=== PATIENT | male | born 1960 ===

== ENCOUNTER 2016-08-23 06:14 | Day surgery (SDC) | payer MEDICARE, MEDICAID ==
[2016-08-22 12:05] VITALS: BMI 41.9
[2016-08-23] MEDS ORDERED: Lidocaine 2% Inj (20ml) ONE (06:29)
[2016-08-23] MEDS ORDERED: Iodixanol 320 MG/ML 200 ML BOTTLE IV ONE (06:30)
[2016-08-23] MEDS ORDERED: Iodixanol 320 MG/ML 100 ML BOTTLE IV ONE (06:30)
[2016-08-23] MEDS ORDERED: Phenylephrine 10 mg/ml Inj ONE (06:30)
[2016-08-23] MEDS ORDERED: Iohexol 350mgl/ml 50 ML ONE (06:30)
[2016-08-23] MEDS ORDERED: Nitroglycerin 50mg in D5W 0 MG/0 ML BOTTLE IV ONE (06:30)
[2016-08-23] MEDS ORDERED: Atropine 0.4 mg/ml Inj (1 mL) ONE (06:30)
[2016-08-23 06:47] LABS: ADD MANUAL DIFF? NO
[2016-08-23 07:00] LABS: BLOOD UREA NITROGEN 6 mg/dL (7-21); CARBON DIOXIDE 26 mmol/L (21-33); CHLORIDE 108 mmol/L (95-110); GFR AFRICAN-AMERICAN > 60; GLUCOSE,RANDOM 115 mg/dL (70-110); POTASSIUM 4.2 mmol/L (3.6-5.0); SODIUM 140 mmol/L (132-148)
[2016-08-23 07:03] LABS: INR 1.18 (0.93-1.08); PARTIAL THROMBOPLASTIN TIME 27.8 Seconds (23.7-30.8)
[2016-08-23] MEDS ORDERED: Midazolam 2 MG/2 ML VIAL ONE ×2 (07:10→07:41)
[2016-08-23 07:14] LABS: BASO # 0.04 K/mm3 (0.0-2.0); BASO % 0.6 % (0.0-3.0); EOS # 0.2 (0.0-0.7); EOS % 2.6 % (1.5-5.0); GRAN # 2.88 (1.4-6.5); GRAN % 46.4 % (50.0-68.0); LYMPH # 2.1 (1.2-3.4); LYMPH % 34.3 % (22.0-35.0); MEAN CELL VOLUME 90.7 fL (80.0-105.0); MEAN CORPUSCULAR HEMOGLOBIN 31.7 pg (25.0-35.0); MEAN PLATELET VOLUME 12.4 fl (7.0-11.0); MONO % 16.1 % (1.0-6.0); PLATELET COUNT 108 10^3/uL (120.0-450.0); RED CELL DISTRIBUTION WIDTH 13.9 % (11.5-14.5); WHITE BLOOD COUNT 6.2 10^3/ul (4.5-11.0)
[2016-08-23] MEDS ORDERED: Morphine 2 mg/ml ISec ONE ×2 (07:53→08:01)
[2016-08-23] MEDS ORDERED: Adenosine 90 mg/30mL IV ONE (07:53)
[2016-08-23 08:44] VITALS: TEMP 97.6
[2016-08-23] MEDS ORDERED: Sodium Chloride 0.9% 1,000 ML IV SCH (08:45)
--- NOTE | 2016-08-23 09:25 | CARDCATH ---
PROCEDURE DATE: 08/23/2016 HISTORY: The patient is a 56-year-old male who presents with progressive exertional shortness of gigi ath and chest pain. Stress test revealed deterioration of his LV function. Because of this, cardiac catheterization was recommended. PROCEDURE: Left heart catheterization with coronary angiography and left ventriculogram as well as F FR was performed. There were no complications. The right femoral artery was cannulated with a 6-[place] sheath. The findings on catheterization revealed a right dominant circulation. The RCA revealed diffuse atherosclerosis throughout its tree. There was a stent in the mid portion. After the stent, there is a 60% stenoses at the takeoff of the posterolateral branch. The left main artery was found to be unremarkable. The LAD revealed multiple stents that were patent throughout its course from the proximal to the mid portion. In the mid portion of the LAD, there was a 40-50% stenosis noted. There is a 90% stenosis in the small diagonal vessels. The circumflex artery was a large vessel and found to have diffuse atherosclerosis. At the ostium of the circumflex artery, there was a 50-60% stenosis noted. FFR was performed of the ostial circumflex lesion, which was negative for critical physiologic gradie nts. The FFR was 0.96. Left ventriculogram was performed in the JOHNSON projection. In the JOHNSON projection, wall motion was glob ally mildly dilated but with preserved left ventricular systolic function. Estimated ejection fracti on is between 50-55%. The patient tolerated the procedure well. Angio-Seal was used to close the femoral artery site. In summary, the procedure revealed multivessel CAD with stents throughout his coronary tree. There w as a 50-60% stenosis in the ostial circumflex artery with an FFR 0.96. There were patent stents in t he LAD, as well as a 60% stenosis in the distal RCA at the takeoff of the posterolateral branch. LV function was preserved with a mildly dilated LV with good systolic function. Given these findings, no mechanical procedures are necessary in his coronary tree. Instead, we will continue medical therapy. Again, I have discussed with the patient about the need for weight loss as well as improvement of cardiac risk reduction program, which he has been very reluctant to participa te in. Rashad Russo MD cc: [phone] TT: 08/23/2016 09:24:31 jn
[2016-08-23 15:28] LABS: HEMATOCRIT 38.9 % (42.0-52.0); MEAN CELL VOLUME 92.2 fL (80.0-105.0); MEAN CORPUSCULAR HEMOGLOBIN 31.8 pg (25.0-35.0); MEAN CORPUSCULAR HGB CONC 34.4 g/dl (31.0-37.0); MEAN PLATELET VOLUME 11.9 fl (7.0-11.0); WHITE BLOOD COUNT 4.9 10^3/ul (4.5-11.0)
[2016-08-23 15:47] VITALS: BP 124/73; PULSE 81; RESP 20; O2SAT 98
--- NOTE | 2016-08-23 15:58 | CP.PCM.PN ---
<Ricardo Best - Last Filed: 08/23/16 17:22> Subjective - Date & Time of Evaluation Date of Evaluation: 08/23/16 Time of Evaluation: 14:55 - Subjective Subjective: S: At approximately 2:56pm a rapid response was called on a 56M with pmh of CAD s/ p stents x 10, HTN, hypothyroidism, HLD, DM, who was s/p cath procedure at 8am this morning. Pt. was walking in the afternoon before his discharge and became dizzy, weak, and complained of chest pain 6/10 which radiated to his arm. O: Pt. vitals 128/78, pulse 70, respirations 18 100% O2 A:56M complaining of chest pain on exertion s/p cath in the morning P: repeat BP 143/[address] on monitor continue IV fluids 100cc/hr repeat EKG showed no interval change from previous. NSR 81bpm with non specific ST-T changes Pt's pain dropped to 4/10 after approximately 20min and then to 0/10 after 30min attending notified Dr. Russo. Objective - Vital Signs/Intake and Output Vital Signs (last 24 hours): Temp Pulse Resp BP Pulse Ox 97.6 F 81 20 124/73 98 08/23/16 11:50 08/23/16 15:40 08/23/16 15:40 08/23/16 15:40 08/23/16 15:40 - Labs Labs: 08/23/16 15:22 08/23/16 06:40 PT 12.7 Seconds (9.9-11.8) H 08/23/16 06:40 INR 1.18 (0.93-1.08) H 08/23/16 06:40 APTT 27.8 Seconds (23.7-30.8) 08/23/16 06:40 <Ines Metz - Last Filed: 08/23/16 18:51> Objective - Vital Signs/Intake and Output Vital Signs (last 24 hours): Temp Pulse Resp BP Pulse Ox 97.6 F 81 20 124/73 98 08/23/16 11:50 08/23/16 15:40 08/23/16 15:40 08/23/16 15:40 08/23/16 15:40 - Labs Labs: 08/23/16 15:22 08/23/16 06:40 PT 12.7 Seconds (9.9-11.8) H 08/23/16 06:40 INR 1.18 (0.93-1.08) H 08/23/16 06:40 APTT 27.8 Seconds (23.7-30.8) 08/23/16 06:40 Attending/Attestation - Attestation I have personally seen and examined this patient.: Yes I have fully participated in the care of the patient.: Yes I have reviewed all pertinent clinical information, including history, physical exam and plan: Yes Notes (Text): 08/23/16 18:05 HOSPITAL CHIEF EXECUTIVE OFFICER was called when pt c/o feeling dizzy,weak and c/o mid-sternal chest pain radiating to the R arm.This happened when pt was walking with his nurse before he was to be discharged.He was promptly placed on a chair,then on a stretcher.He was not diaphoretic ,denied nausea,SOB, calf pain,abdominal pain or any other symptoms. On P.E at that time,pt was alert,awake and in no clinical distress. As noted,his VS were stable.O2 sat was 100% on 3L O2 by NC. KELLEE JVD neg LUNGS clear COR S1S2 Regular ABD Obese,BS+,dressing in place in the R groin.Minimal tenderness noted at this site. No hematoma or swelling noted. No tenderness noted in the R lower abdomen(near the site of the Cath). EXT No calf tenderness. SKIN is warm and dry. IMP: Chest pain Dizziness Weakness PLAN Continue iv fluids Place pt on cardiac moniter EKG ordered stat Orthostatic VS CBC stat NTG 0.4 mg SL was given stat Dr Russo was called.He wanted pt to get fluids for about an hr,then he should be made to sit on a recliner for a while before he can ambulate. To notify him after CBC result is available. EKG done stat showed no change from prior EKG in the chart.
--- NOTE | 2016-08-23 18:47 | CARD ---
APPROVED REPORT EKG Measurement Heart [id number] <Conclusion> Normal sinus rhythm Nonspecific T wave abnormality Prolonged QT Abnormal ECG
--- NOTE | 2016-08-23 19:03 | CARD ---
APPROVED REPORT EKG Measurement Heart [id number] <Conclusion> Normal sinus rhythm Possible Anterior infarct, age undetermined Abnormal ECG
== END 2016-08-23 16:35 | disposition home or self-care (01) ==
LOC: CATH 06:14
PROVIDERS: ATTEND Internal Medicine Cardiovascular Disease
DX: I25.10 Atherosclerotic heart disease of native coronary artery without angina pectoris (principal); R07.9 Chest pain, unspecified
CPT/HCPCS: 36415; 80048; 82948; 85025; 85027; 85610; 85730; 86850; 86900; 93005; 93458; 93571; 99152; 99153; C1760; C1769 ×2; C1887; C2629; J0153; J0583; J1644; J2250; J2270; J2370; J3010; J7040; Q9967 ×2

== ENCOUNTER 2017-05-09 02:16 | Observation (INO) | payer MEDICARE, MEDICAID ==
--- NOTE | 2017-05-09 02:28 | ED PDOC ---
Arrival/HPI - General Time Seen by Provider: 05/09/17 02:18 Historian: Patient - History of Present Illness Narrative History of Present Illness (Text): 05/09/17 02:25 A 57 year old male, whose past medical history includes CAD with 10 cardiac stents, hypertension, hypothyroidism, hyperlipidemia, Diabetes, presents to the emergency department complaining of bilateral nipple pain and left leg swelling. The patient denies fevers, chills, headache, dizziness, chest pain, shortness of breath, dyspnea on exertion, cough, abdominal pain, nausea, vomiting, diarrhea, back pain, neck pain, urinary/bowel changes, or any other complaint. PMD: Dr. Santos Time/Duration: Other (Today) Symptom Onset: Sudden Symptom Course: Unchanged Activities at Onset: Rest, Light Context: Home Past Medical History - Provider Review Nursing Documentation Reviewed: Yes - Infectious Disease Hx of Infectious Diseases: None - Tetanus Immunization Tetanus Immunization: Unknown - Cardiac Hx Pacemaker: No - Pulmonary Hx Respiratory Disorders: No - Neurological Hx Paralysis: No - HEENT Hx HEENT Disorder: No - Renal Hx Renal Disorder: No - Endocrine/Metabolic Hx Endocrine Disorders: Yes Hx Diabetes Mellitus Type 1: Yes - Hematological/Oncological Hx Blood Transfusions: No Hx Blood Transfusion Reaction: No - Integumentary Hx Dermatological Disorder: No Other/Comment: ble multiple skin discolorations - Musculoskeletal/Rheumatological Hx Musculoskeletal Disorders: Yes (HX LEFT LOWER LEG INJURY FX OF TIB-FIB LEFT.) - Gastrointestinal Hx Gastrointestinal Disorders: Yes (obese) - Genitourinary/Gynecological Hx Genitourinary Disorders: No - Psychiatric Hx Emotional Abuse: No Hx Physical Abuse: No Hx Substance Use: No - Surgical History Hx Cardiac Catheterization: Yes - Anesthesia Hx Anesthesia Reactions: No Hx Malignant Hyperthermia: No - Suicidal Assessment Feels Threatened In Home Enviroment: No Family/Social History - Physician Review Nursing Documentation Reviewed: Yes Family/Social History: No Known Family HX Smoking Status: Never Smoked Hx Alcohol Use: No Hx Substance Use: No Hx Substance Use Treatment: No Allergies/Home Meds Allergies/Adverse Reactions: Allergies No Known Allergies Allergy (Verified 05/09/17 12:32) Home Medications: Home Meds Medication Instructions Recorded Confirmed Insulin Glargine,Hum.rec.anlog 90 unit AR ACS 10/17/12 05/09/17 [Lantus] Metformin HCl 1,000 mg PO BID 02/24/14 05/09/17 Glipizide 10 mg PO BID 05/16/14 05/09/17 Levothyroxine Sodium 50 mcg PO DAILY 05/16/14 05/09/17 [id number] Ethyl Esters [OMEGA 3] 4 tab PO BID 05/16/14 05/09/17 Esomeprazole Magnesium [Nexium] 40 mg PO DAILY 05/17/14 05/09/17 Aspirin [Ecotrin] 81 mg PO DAILY 07/31/15 05/09/17 Atenolol [Tenormin] 50 mg PO DAILY 07/31/15 05/09/17 Clopidogrel [Plavix] 75 mg PO DAILY 07/31/15 05/09/17 Colesevelam HCl [Welchol] 625 mg PO DAILY 07/31/15 05/09/17 Insulin Lispro [Humalog] 50 units SQ ACTID 08/04/15 05/09/17 Review of Systems - Physician Review All systems were reviewed & negative as marked: Yes - Review of Systems Constitutional: absent: Fevers, Night Sweats Respiratory: absent: SOB, Cough Cardiovascular: absent: Chest Pain, [place] Gastrointestinal: absent: Abdominal Pain, Diarrhea, Nausea, Vomiting Musculoskeletal: Other (Bilateral nipple pain/ left leg swelling). absent: Back Pain, Neck Pain Neurological: absent: Headache, Dizziness Physical Exam Vital Signs Reviewed: Yes Vital Signs Temp Pulse Pulse Resp BP Pulse Ox 05/09/17 04:17 98.3 F 100 H 16 135/77 96 05/09/17 02:17 105 H 106 H 15 153/84 H 97 Temperature: Afebrile Blood Pressure: Hypertensive Pulse: Tachycardic Respiratory Rate: Normal Appearance: Positive for: Well-Appearing, Non-Toxic, Comfortable, Other ( Morbidly Obese) Pain Distress: None Mental Status: Positive for: Alert and Oriented X 3 - Systems Exam Head: Present: Atraumatic, Normocephalic Pupils: Present: PERRL Extroacular Muscles: Present: EOMI Conjunctiva: Present: Normal Mouth: Present: Moist Mucous Membranes Neck: Present: Normal Range of Motion Respiratory/Chest: Present: Clear to Auscultation, Good Air Exchange. No: Respiratory Distress, Accessory Muscle Use Cardiovascular: Present: Regular Rate and Rhythm, Normal S1, S2. No: Murmurs Abdomen: Present: Normal Bowel Sounds. No: Tenderness, Distention, Peritoneal Signs Back: Present: Normal Inspection Upper Extremity: Present: Normal Inspection. No: Cyanosis, Edema Lower Extremity: Present: Swelling (Left leg swelling). No: Edema Neurological: Present: GCS=15, CN II-XII Intact, Speech Normal Skin: Present: Warm, Dry, Normal Color. No: Rashes Psychiatric: Present: Alert, Oriented x 3, Normal Insight, Normal Concentration Medical Decision Making ED Course and Treatment: 05/09/17 02:28 Impression: A 57 year old male, presents to the emergency department complaining of bilateral nipple pain and left leg swelling. Plan: -- EKG -- Chest X-ray -- Left Lower Extremity Ultrasound -- Labs -- Urinalysis -- Reassess and disposition Progress Notes: 05/09/17 04:01: Chest X-ray read and interpreted by me shows no acute findings. spoke with medical equipment technician and dr parsons for admission for cp 05/10/17 10:07 - Lab Interpretations Lab Results: 05/09/17 02:20 05/09/17 02:20 Lab Results 05/09/17 02:30: Free T4 0.91, TSH 3rd Generation 1.88 05/09/17 02:30: Hemoglobin A1c 8.9 H 05/09/17 02:30: NT-Pro-B Natriuret Pep 139, Triglycerides 153, Cholesterol 221 H , LDL Cholesterol Direct 136 H, HDL Cholesterol 46 05/09/17 02:20: Sodium 139, Potassium 3.9, Chloride 104, Carbon Dioxide 23, Anion Gap 15, BUN 9, Creatinine 0.7 L, Est GFR ( Amer) > 60, Est GFR (Non -Af Amer) > 60, Random Glucose 430 H* D, Calcium 9.2, Magnesium 1.9, Total Bilirubin 1.3, AST 72 H, ALT 56, Alkaline Phosphatase 114, Lactate Dehydrogenase 749 H, Total Creatine Kinase 152, Troponin I 0.02, Total Protein 7.1, Albumin 3.2, Globulin 3.9, Albumin/Globulin Ratio 0.8 L 05/09/17 02:20: PT 14.9 H, INR 1.30 H, APTT 30.5 05/09/17 02:20: WBC 6.0 D, RBC 4.05, Hgb 13.2 L, Hct 37.5 L, MCV 92.6, MCH 32.6 , MCHC 35.2, RDW 13.6, Plt Count 108 L, MPV 10.9, Gran % 51.8, Lymph % (Auto) 31.5, Hawkins % (Auto) 12.8 H, Eos % (Auto) 3.2, Baso % (Auto) 0.7, Gran # 3.09, Lymph # (Auto) 1.9, Hawkins # (Auto) 0.8 H, Eos # (Auto) 0.2, Baso # (Auto) 0.04 I have reviewed the lab results: Yes - RAD Interpretation Radiology Orders: 05/09/17 02:33 DUPLEX LOWER EXTRM VEIN BILAT [US] Stat - EKG Interpretation Interpreted by ED Physician: Yes Type: 12 lead EKG - Medication Orders Current Medication Orders: Aspirin (Ecotrin) 81 mg PO DAILY [facility] Last Admin: 05/09/17 13:06 Dose: Not Given Non-Admin Reason: Patient Refused Atenolol (Tenormin) 50 mg PO DAILY [facility] Last Admin: 05/09/17 14:45 Dose: 50 mg BANNER Pulse and Blood Pressure Document 05/09/17 14:45 (Rec: 05/09/17 14:45 [id number]) Pulse Pulse Rate (60-90) 107 Blood Pressure Blood Pressure (100/60-150/90) 128/76 Atorvastatin Calcium (Lipitor) 40 mg PO DIN [facility] Last Admin: 05/09/17 17:10 Dose: 40 mg Clopidogrel Bisulfate (Plavix) 75 mg PO DAILY [facility] Last Admin: 05/09/17 13:08 Dose: Furosemide (Lasix) 40 mg IVP DAILY [facility] Last Admin: 05/09/17 14:44 Dose: 40 mg MAR Blood Pressure Document 05/09/17 14:44 (Rec: 05/09/17 14:45 [email or web address]) Blood Pressure Blood Pressure (100/60-150/90) 128/76 IVP Administration Document 05/09/17 14:44 (Rec: 05/09/17 14:45 [id number] Charges for Administration # of IVP Administrations 1 Heparin Sodium (Porcine) (Heparin) 5,000 units SC Q12 [facility] PRN Reason: Protocol Last Admin: 05/09/17 22:08 Dose: Insulin Human Lispro (Humalog Low) 0 units SC ACHS SARAH PRN Reason: Protocol Last Admin: 05/10/17 07:57 Dose: Not Given Non-Admin Reason: Blood Sugar Parameter MAR Blood Glucose Document 05/10/17 07:57 VM (Rec: 05/10/17 07:57 [id number]) Blood Glucose Finger Stick Blood Glucose (70-120) 140 Levothyroxine Sodium (Synthroid) 50 mcg PO ACB [facility] Last Admin: 05/10/17 06:33 Dose: 50 mcg Colesevelam Hcl [ Welchol] 625 Mg ( Home Med) 625 mg PO DAILY [facility] Last Admin: 05/09/17 13:06 Dose: [id number]-8-[id number] Ethyl Esters (Lovaza) 2 gm PO BID [facility] Last Admin: 05/09/17 17:10 Dose: 2 gm Pantoprazole Sodium (Protonix Ec Tab) 40 mg PO 0600 [facility] Last Admin: 05/10/17 06:33 Dose: 40 mg Discontinued Medications Atenolol (Tenormin) 50 mg PO DAILY [facility] Sodium Chloride (Sodium Chloride 0.9%) 1,000 mls @ 100 mls/hr IV .Q10H SARAH Stop: 05/09/17 17:00 Last Admin: 05/09/17 11:46 Dose: 100 mls/hr eMAR Start Stop Document 05/09/17 11:46 JACOBO (Rec: 05/09/17 11:46 DestinyZA [id number]) Intravenous Solution Start Date 05/09/17 Start Time 11:46 Insulin Human Regular (Humulin R) 8 units SC STAT STA Stop: 05/09/17 03:39 Last Admin: 05/09/17 03:55 Dose: 8 units MAR Blood Glucose Document 05/09/17 03:55 JOL (Rec: 05/09/17 03:55 JOL [id number]) Blood Glucose Finger Stick Blood Glucose (70-120) 430 Subcutaneous Administrations Document 05/09/17 03:55 JOL (Rec: 05/09/17 03:55 JOL [id number]) Injection Site MAR Injection Site Left Arm Charges for Administration # of Subcutaneous Administrations 1 Insulin Human Regular (Humulin R High) 0 units SC ACHS SARAH PRN Reason: Protocol Last Admin: 05/09/17 13:07 Dose: Not Given Non-Admin Reason: Blood Sugar Parameter Comments: orange juice administered MAR Blood Glucose Document 05/09/17 13:07 JACOBO (Rec: 05/09/17 13:07 JACOBO [id number]) Blood Glucose Finger Stick Blood Glucose (70-120) 69 Nitroglycerin (Nitro-Bid 2% Oint) 1 ea TOP ONCE STA Stop: 05/09/17 03:28 Last Admin: 05/09/17 03:55 Dose: 1 ea Nitroglycerin (Nitrostat Sl Tab) 0.4 mg SL Q5M PRN PRN Reason: Other Stop: 05/09/17 06:41 Pneumococcal Polyvalent Vaccine (Pneumovax 23 Vaccine) 0.5 ml IM .ONCE ONE Stop: 05/09/17 15:05 - Scribe Statement The provider has reviewed the documentation as recorded by the Mikeibe Lupis Lang Provider Scribe Attestation: All medical record entries made by the Scribe were at my direction and personally dictated by me. I have reviewed the chart and agree that the record accurately reflects my personal performance of the history, physical exam, medical decision making, and the department course for this patient. I have also personally directed, reviewed, and agree with the discharge instructions and disposition. Disposition/Present on Arrival - Present on Arrival Any Indicators Present on Arrival: No History of DVT/PE: No History of Uncontrolled Diabetes: Yes Urinary Catheter: No History Surgical Site Infection Following: None - Disposition Have Diagnosis and Disposition been Completed?: Yes Diagnosis: Chest pain Disposition: HOSPITALIZED Disposition Time: 04:35 Patient Problems: Current Active Problems Problem Status Onset Diabetes mellitus Chronic Hyperlipidemia Chronic Hypertension Chronic Condition: GOOD
[2017-05-09 02:52] LABS: BASO # 0.04 K/mm3 (0.0-2.0); BASO % 0.7 % (0.0-3.0); EOS # 0.2 (0.0-0.7); EOS % 3.2 % (1.5-5.0); GRAN # 3.09 (1.4-6.5); GRAN % 51.8 % (50.0-68.0); HEMOGLOBIN 13.2 g/dL (14.0-18.0); LYMPH # 1.9 (1.2-3.4); LYMPH % 31.5 % (22.0-35.0); MEAN CELL VOLUME 92.6 fl (80.0-105.0); MEAN CORPUSCULAR HEMOGLOBIN 32.6 pg (25.0-35.0); MEAN CORPUSCULAR HGB CONC 35.2 g/dl (31.0-37.0); MEAN PLATELET VOLUME 10.9 fl (7.0-11.0); MONO # 0.8 (0.1-0.6); MONO % 12.8 % (1.0-6.0); RBC 4.05 10^6/uL (3.5-6.1); RED CELL DISTRIBUTION WIDTH 13.6 % (11.5-14.5)
[2017-05-09 03:02] LABS: INR 1.3 (0.93-1.08); PARTIAL THROMBOPLASTIN TIME 30.5 Seconds (25.1-36.5); PROTHROMBIN TIME 14.9 SECONDS (9.4-12.5)
[2017-05-09] MEDS ORDERED: Nitroglycerin 2% Ointment Foilpak UD TOP STA (03:27)
[2017-05-09 03:32] LABS: TROPONIN I 0.02 ng/mL
[2017-05-09 03:38] LABS: ALB/GLOB RATIO 0.8 (1.1-1.8); ALBUMIN 3.2 g/dL (3.0-4.8); ALT/SGPT 56 U/L (7-56); AST/SGOT 72 U/L (17-59); BLOOD UREA NITROGEN 9 mg/dL (7-21); CALCIUM 9.2 mg/dL (8.4-10.5); GFR AFRICAN-AMERICAN > 60; GFR NON-AFRICAN AMERICAN > 60; MAGNESIUM 1.9 mg/dL (1.7-2.2)
[2017-05-09] MEDS ORDERED: Insulin Regular 1 UNITS/0.01 ML ML SC STA (03:38)
--- NOTE | 2017-05-09 05:53 | CP.PCM.HP ---
<Toñito Duong - Last Filed: 05/09/17 05:57> History of Present Illness - History of Present Illness History of Present Illness: This patient is a 57 year old male with a PMHx of CAD w/ 10 stents, HTN, Hypothyroidism, HLD, DM II, and Right Lower Ext. Cellulitis who presents complaining of bilateral lower extremity edema with associated tenderness x 1 week and chest pain x 1 day. Patient denies any inciting factors that could have caused the edema. He has tried his home lasix to try to self treat the edema without success. He denies any prior history of CHF. He does admit to dyspnea on exertion but denies any orthopnea. Patient states the chest pain began yesterday around 11 pm. He describes it as "tight" and states the pain radiates to his back. He has not attempted any modalities to treat the pain but states it was relieved with the NitroPatch. He does admit to palpitations, and intermittent headaches/dizziness within the past week. Patient had one episode of NBNB vomiting yesterday. He currently denies any nausea. ROS POSITIVES: Chest pain, SOB (intermittent), dyspnea on exertion, vomiting, palpitations, Headache (intermittent), Dizziness (intermittent) NEGATIVES: Fevers, Chills, Orthopnea, Abdominal pain, nausea, changes i bowel habits, or urinary symptoms. PMHx: CAD w/ 10 stents, HTN, Hypothyroidism, HLD, DM II, Right Lower Ext. Cellulitis PSHx: Denies Allergies: NKDA SocialHx: Denies any tobacco, alcohol, or illicit drug use Hos: 2016 for Right Lower Ext. Cellulitis FamHx: CVA, DM (Father) | Breast CA (Mother) Meds: Reviewed. PMD: [employer] Worker: Dr. Russo Present on Admission - Present on Admission Any Indicators Present on Admission: Yes History of Uncontrolled Diabetes: Yes Review of Systems - Review of Systems Review of Systems: As per HPI Past Patient History - Infectious Disease Hx of Infectious Diseases: None - Tetanus Immunizations Tetanus Immunization: Unknown - Past Social History Smoking Status: Never Smoked - CARDIAC Hx Pacemaker: No - PULMONARY Hx Respiratory Disorders: No - NEUROLOGICAL Hx Paralysis: No - HEENT Hx HEENT Problems: No - RENAL Hx Chronic Kidney Disease: No - ENDOCRINE/METABOLIC Hx Endocrine Disorders: Yes Hx Diabetes Mellitus Type 1: Yes - HEMATOLOGICAL/ONCOLOGICAL Hx Blood Transfusions: No Hx Blood Transfusion Reaction: No - INTEGUMENTARY Hx Dermatological Problems: No Other/Comment: ble multiple skin discolorations - MUSCULOSKELETAL/RHEUMATOLOGICAL Hx Musculoskeletal Disorders: Yes (HX LEFT LOWER LEG INJURY FX OF TIB-FIB LEFT.) - GASTROINTESTINAL Hx Gastrointestinal Disorders: Yes (obese) - GENITOURINARY/GYNECOLOGICAL Hx Genitourinary Disorders: No - PSYCHIATRIC Hx Emotional Abuse: No Hx Physical Abuse: No Hx Substance Use: No - SURGICAL HISTORY Hx Cardiac Catheterization: Yes - ANESTHESIA Hx Anesthesia Reactions: No Hx Malignant Hyperthermia: No Meds Allergies/Adverse Reactions: Allergies Allergy/AdvReac Type Severity Reaction Status Date / Time No Known Allergies Allergy Verified 05/09/17 02:34 Physical Exam - Constitutional Appears: Well, Non-toxic, No Acute Distress - Head Exam Head Exam: ATRAUMATIC, NORMAL INSPECTION, NORMOCEPHALIC - Eye Exam Eye Exam: EOMI. absent: Scleral icterus - ENT Exam ENT Exam: Mucous Membranes Moist - Neck Exam Neck exam: Negative for: Lymphadenopathy - Respiratory Exam Respiratory Exam: Clear to Auscultation Bilateral, NORMAL BREATHING PATTERN. absent: Accessory Muscle Use, Rales, Rhonchi, Wheezes, Respiratory Distress, Stridor - Cardiovascular Exam Cardiovascular Exam: RRR, +S1, +S2 - GI/Abdominal Exam GI & Abdominal Exam: Distended (Body Habitus ), Normal Bowel Sounds, Soft. absent: Firm, Guarding, Mass, Organomegaly, Rebound, Tenderness - Extremities Exam Extremities exam: Positive for: calf tenderness, normal capillary refill, pedal edema, tenderness, pedal pulses present (Dorsalis Pedis +2 B/L. ). Negative for : normal inspection - Neurological Exam Neurological exam: Alert, Oriented x3 - Psychiatric Exam Psychiatric exam: Normal Affect, Normal Mood - Skin Skin Exam: Dry, Intact, Normal Color, Warm Results - Vital Signs Recent Vital Signs: Last Vital Signs Temp 98.3 F 05/09/17 04:17 Pulse 100 H 05/09/17 04:17 Resp 16 05/09/17 04:17 BP 135/77 05/09/17 04:17 Pulse Ox 96 05/09/17 04:17 - Labs Result Diagrams: 05/09/17 02:20 05/09/17 02:20 - EKG Data EKG Interpreted by: Myself Rate: Tachycardia - EKG Data EKG comments: No Acute ST or T wave changes Assessment & Plan - Assessment and Plan (Free Text) Assessment: 57 year old male with a PMHx of CAD w/ 10 stents, HTN, Hypothyroidism, HLD, DM II, and Right Lower Ext. Cellulitis who presents complaining of bilateral lower extremity edema with associated tenderness x 1 week and chest pain x 1 day. Plan: Chest Pain R/O ACS Trend Trops 1st Trop: NEGATIVE Trend EKst EKG: Sinus Tach. No Acute ST or T wavce changes BNP Mg/Phos Consult Cardio (Dr. Russo) ECHO (July 2016): Mild-Mod. LVH, Good LV systolic function, Dilated LA, AoV Sclerosis ECHO HgBA1C Lipid Panel TSH w/ Free T4 Lower Ext. Edema Ultrasound: NEGATIVE for DVT CXR: F/U BNP: F/U ECHO: F/U Daily weights. Home Lasix 40 Daily Hx of HTN Home Atenolol 50 Daily Home Lasix 40 Daily CAD w/ 10 Stents Home Plavix Home ASA HLD Home Welchol: Not in Formulary. Consider alternative if status is switched to inpatient [place] Hx DM II Held all home ant-diabetic meds ISS (High) Hx of Hypothyrodism Home Synthroid 50mcg PO ACB Proph Home Plavix Protonix. Pt is on Nexium at home Patient discussed with Attending (Dr. Núñez) Toñito Duong, PGY1 <Niya DRAKE,Antwan - Last Filed: 05/09/17 07:07> Results - Vital Signs Recent Vital Signs: Last Vital Signs Temp 98.3 F 05/09/17 04:17 Pulse 100 H 05/09/17 04:17 Resp 16 05/09/17 04:17 BP 135/77 05/09/17 04:17 Pulse Ox 96 05/09/17 04:17 - Labs Result Diagrams: 05/09/17 02:20 05/09/17 02:20 Attending/Attestation - Attestation I have personally seen and examined this patient.: Yes I have fully participated in the care of the patient.: Yes I have reviewed all pertinent clinical information: Yes Notes (Text): -I agree with the above H&P completed by the resident physician with the following additions and/or changes: -The patient is a 57 year old morbidly obese man with a history of CAD (s/p multiple stents), HL, IDDM and hypothyroidism, who is being admitted to the telemetry [facility] with chest pain (r/o ACS), poorly controlled diabetes (blood [id number]) and bilateral lower extremity pitting edema. He denies SOB, orthopnea, PND or cough. He reports compliance with a low salt diet as well as with Lasix and Insulin. His chest pain improved after receiving topical Nitro in the ED. Cardiology (Dr. Russo) has been consulted. Serial trops and EKGs as well as a 2D-echo have been ordered. High-dose Insulin sliding scale has been started. The patient will be placed on Lasix IV 40mg daily for diuresis. We will continue his home meds of ASA and Plavix. Bilateral Doppler lower extremity U/S done in the ED was negative (per preliminary report).
[2017-05-09] MEDS: Levothyroxine 50 MCG TAB PO SCH (07:30)
[2017-05-09 07:54] LABS: FREE T4 0.91 ng/dL (0.78-2.19)
[2017-05-09] MEDS ORDERED: Lidocaine 2% Inj (20ml) ONE ×2 (08:30→10:20)
[2017-05-09] MEDS: Insulin Reg-HIGH-Coverage SC SCH ×2 (08:30→13:07)
[2017-05-09] MEDS ORDERED: Iodixanol 320 MG/ML 200 ML BOTTLE IV ONE (08:31)
[2017-05-09] MEDS ORDERED: Iodixanol 320 MG/ML 100 ML BOTTLE IV ONE (08:31)
[2017-05-09] MEDS ORDERED: Iohexol 350mgl/ml 50 ML ONE (08:31)
[2017-05-09] MEDS ORDERED: HEPARIN SODIUM/NS 2,000 ML IV ONE (08:32)
[2017-05-09 08:43] LABS: HDL CHOLESTEROL 46 mg/dL (29-60)
[2017-05-09] MEDS: Dextrose 50% SYRINGE Inj (50 ml) ONE ×2 (08:50→13:06)
[2017-05-09 08:52] LABS: B-TYPE NATRIURETIC PEPTIDE 139 pg/mL (0-450)
[2017-05-09 08:53] LABS: LDL CHOLESTEROL 136 mg/dL (0-129)
--- NOTE | 2017-05-09 09:04 | RAD ---
HISTORY: COMPARISON: 04/13/2016 . TECHNIQUE: Chest PA and lateral FINDINGS: LINES AND TUBES: None. LUNG AND PLEURA: The lungs are well inflated and clear. HEART AND MEDIASTINUM: The heart is not enlarged. The hilar and mediastinal contours are within normal limits. SKELETAL STRUCTURES: The bony structures are within normal limits for the patient's age. VISUALIZED UPPER ABDOMEN: Normal. OTHER FINDINGS: None. IMPRESSION: No active pulmonary disease.
--- NOTE | 2017-05-09 09:20 | US ---
HISTORY: Leg pain and swelling. Evaluate for DVT PHYSICIAN(S): Rashad Olivo MD. TECHNIQUE: Duplex sonography and color-flow Doppler with graded compression were used to evaluate the deep venous systems of both lower extremities. The exam is limited by body habitus and edema. FINDINGS: The visualized deep venous systems of both lower extremities are sonographically normal and compressible. Normal wave forms and augmentation are seen. There is no sonographic evidence for deep venous thrombosis in the visualized segments of both lower extremities. IMPRESSION: No sonographic evidence for deep venous thrombosis in the visualized segments of both lower extremities. Limited study.
[2017-05-09] MEDS ORDERED: Enoxaparin 40 mg Syringe SC SCH (10:00)
[2017-05-09] MEDS: Midazolam 2 MG/2 ML VIAL ONE ×4 (10:13→15:23)
--- NOTE | 2017-05-09 10:17 | CARD ---
APPROVED REPORT EKG Measurement Heart [id number] [place] 190P46 [id number] <Conclusion> Normal sinus rhythm T wave abnormality, consider lateral ischemia Prolonged QT C/W earlier CG, the ST changes have increased
--- NOTE | 2017-05-09 10:26 | CARD ---
APPROVED REPORT EKG Measurement Heart [id number] [place] [id number] [id number] <Conclusion> Sinus tachycardia Minimal voltage criteria for LVH, may be normal variant PRWP Septal infarct, age undetermined Inferior infarct,old STTW changes c/w ischemia
[2017-05-09] MEDS ORDERED: Sodium Chloride 0.9% 1,000 ML IV SCH (11:15)
[2017-05-09] MEDS: COLESEVELAM HCL 625 MG PO SCH (13:06)
[2017-05-09] MEDS: Omega-3-Acid Ethyl Esters 1 GM Cap PO SCH ×2 (13:08→17:10)
[2017-05-09 15:04] VITALS: BMI 43.2
[2017-05-09] MEDS ORDERED: Influenza Vaccine 60 mcg/0.5 mL SYR (4YR UP) IM ONE (15:04)
[2017-05-09] MEDS ORDERED: Pneumococcal 23-Valent Vaccine IM ONE (15:04)
[2017-05-09] MEDS: Insulin Lispro (humaLOG) LOW Coverage SC SCH ×2 (17:09→22:07)
--- NOTE | 2017-05-09 22:05 | CARDCATH ---
PROCEDURE DATE: 05/09/2017 CARDIAC CATHETERIZATION AND PTCA HISTORY: The patient is a 57-year-old male with multiple cardiac risk factors with multiple stents in the past, who continues to avoid a cardiac risk reduction, cardiac risk reduction lifestyle. Despite multiple attempts at intervention, he presents with a non-STEMI and unstable angina. PROCEDURE: Left heart catheterization with coronary arteriography, left ventriculogram, PTCA and stent of the RCA, PTCA of a diagonal vessel through the LAD as well as well as PTCA of the of the diagonal through the LAD. The right femoral artery was cannulated with a 6-Frisian sheath. There were no complications. I performed moderate sedation, which included the presence of an independent trained observer that assisted in monitoring the patient's level of consciousness and physiologic status. After administration of Versed and fentanyl, my intra service time was 30 minutes. The findings on catheterization revealed a left ventricle that contracted normally. Estimated ejection fraction of 55-60%. His coronary anatomy revealed a right dominant circulation. The RCA was the dominant vessel and was a large vessel and which was diffusely diseased with diffuse atherosclerosis. In the midportion, there is an eccentric 70% stenoses noted. The left main artery was unremarkable. The circumflex artery revealed a 50-60% stenosis at its ostium, which was tested in the previous catheterization with an unremarkable FFR. The LAD revealed diffuse atherosclerosis with multiple patent stents throughout its course. The second diagonal revealed a 90% stenoses in its ostium extending into the proximal portion of the diagonal vessel. The patient was started on intravenous Angiomax on the fluoroscopic guide, the guiding catheter was placed in the ostium of the RCA. An 0.014 ATW wire was used to cross the lesion. A guide liner was used to help for better support. A 4.0 x 15 mm drug-eluting stent was placed and deployed at 16 atmospheres of pressure. Repeat coronary arteriography revealed an excellent result with no residual stenosis and GUILHERME III flow. This was then exchanged for a guiding catheter that was placed in the ostium of the left main artery. An 0.014 ATW wire was used to cross the LAD stent into the diagonal vessel. A 2.0 balloon was utilized to predilate the lesion. Attempts with multiple stents could not cross through the stent into the side branch. Despite multiple attempts, repeat coronary artery revealed GUILHERME III flow down the diagonal vessel. The patient tolerated the procedure well. Angio-Seal was used to close the femoral artery site. In summary, the procedure was successful PTCA and stent of mid RCA stenoses with a drug-eluting stent. PTCA of a diagonal vessels through an LAD stent was accomplished; however; stent could not cross the struts. Coronary arteriography revealed normal LV function with multivessel CAD. Given these findings, the patient will need to undergo a cardiac risk reduction program, which we have talked to him several times In addition, the patient will need to remain on aspirin indefinitely and Plavix for at least a year and undergo a strict cardiac risk reduction program. Rashad Russo MD
[2017-05-09 22:13] VITALS: O2SAT 96
[2017-05-10] MEDS ORDERED: Pantoprazole 40 mg EC Tab PO SCH (06:00)
--- NOTE | 2017-05-10 06:20 | CP.PCM.DIS ---
Addendum entered and electronically signed by Emile New DO 05/10/17 14 :54: Discussed with patient to not resume metformin until 48 hours have passed since his cath procedure due to effect on the kidneys. Original Note: <Emile New - Last Filed: 05/10/17 13:47> Provider - Provider Date of Admission: 05/09/17 04:00 Attending physician: Justice Webb MD Primary care physician: Obed Santos Consults: Cardiology: Dr. Lazo Time Spent in preparation of Discharge (in minutes): 45 Diagnosis - Discharge Diagnosis (1) Chest pain Status: Acute Priority: High (2) Diabetes mellitus Status: Chronic Priority: High (3) Hypertension Status: Chronic Priority: High (4) Hyperlipidemia Status: Chronic Priority: High Hospital Course - Lab Results Lab Results: Most Recent Lab Values WBC 6.0 10^3/ul (4.5-11.0) D 05/09/17 02:20 RBC 4.05 10^6/uL (3.5-6.1) 05/09/17 02:20 Hgb 13.2 g/dL (14.0-18.0) L 05/09/17 02:20 Hct 37.5 % (42.0-52.0) L 05/09/17 02:20 MCV 92.6 fl (80.0-105.0) 05/09/17 02:20 MCH 32.6 pg (25.0-35.0) 05/09/17 02:20 MCHC 35.2 g/dl (31.0-37.0) 05/09/17 02:20 RDW 13.6 % (11.5-14.5) 05/09/17 02:20 Plt Count 108 10^3/uL (120.0-450.0) L 05/09/17 02:20 MPV 10.9 fl (7.0-11.0) 05/09/17 02:20 Gran % 51.8 % (50.0-68.0) 05/09/17 02:20 Lymph % (Auto) 31.5 % (22.0-35.0) 05/09/17 02:20 Davie % (Auto) 12.8 % (1.0-6.0) H 05/09/17 02:20 Eos % (Auto) 3.2 % (1.5-5.0) 05/09/17 02:20 Baso % (Auto) 0.7 % (0.0-3.0) 05/09/17 02:20 Gran # 3.09 (1.4-6.5) 05/09/17 02:20 Lymph # (Auto) 1.9 (1.2-3.4) 05/09/17 02:20 Davie # (Auto) 0.8 (0.1-0.6) H 05/09/17 02:20 Eos # (Auto) 0.2 (0.0-0.7) 05/09/17 02:20 Baso # (Auto) 0.04 K/mm3 (0.0-2.0) 05/09/17 02:20 PT 14.9 SECONDS (9.4-12.5) H 05/09/17 02:20 INR 1.30 (0.93-1.08) H 05/09/17 02:20 APTT 30.5 Seconds (25.1-36.5) 05/09/17 02:20 Sodium 139 mmol/L (132-148) 05/09/17 02:20 Potassium 3.9 mmol/L (3.6-5.0) 05/09/17 02:20 Chloride 104 mmol/L (98-107) 05/09/17 02:20 Carbon Dioxide 23 mmol/L (21-33) 05/09/17 02:20 Anion Gap 15 (10-20) 05/09/17 02:20 BUN 9 mg/dL (7-21) 05/09/17 02:20 Creatinine 0.7 mg/dl (0.8-1.5) L 05/09/17 02:20 Est GFR ( Amer) > 60 05/09/17 02:20 Est GFR (Non-Af Amer) > 60 05/09/17 02:20 POC Glucose (mg/dL) 195 mg/dL (65-110) H 05/09/17 16:20 Random Glucose 430 mg/dL (70-110) H* D 05/09/17 02:20 Hemoglobin A1c 8.9 % (4.2-6.5) H 05/09/17 02:30 Calcium 9.2 mg/dL (8.4-10.5) 05/09/17 02:20 Magnesium 1.9 mg/dL (1.7-2.2) 05/09/17 02:20 Total Bilirubin 1.3 mg/dL (0.2-1.3) 05/09/17 02:20 AST 72 U/L (17-59) H 05/09/17 02:20 ALT 56 U/L (7-56) 05/09/17 02:20 Alkaline Phosphatase 114 U/L (38-126) 05/09/17 02:20 Lactate Dehydrogenase 749 U/L (333-699) H 05/09/17 02:20 Total Creatine Kinase 152 U/L (35-230) 05/09/17 02:20 Troponin I 0.02 ng/mL 05/09/17 02:20 NT-Pro-B Natriuret Pep 139 pg/mL (0-450) 05/09/17 02:30 Total Protein 7.1 g/dL (5.8-8.3) 05/09/17 02:20 Albumin 3.2 g/dL (3.0-4.8) 05/09/17 02:20 Globulin 3.9 gm/dL 05/09/17 02:20 Albumin/Globulin Ratio 0.8 (1.1-1.8) L 05/09/17 02:20 Triglycerides 153 mg/dL (35-160) 05/09/17 02:30 Cholesterol 221 mg/dL (130-200) H 05/09/17 02:30 LDL Cholesterol Direct 136 mg/dL (0-129) H 05/09/17 02:30 HDL Cholesterol 46 mg/dL (29-60) 05/09/17 02:30 Free T4 0.91 ng/dL (0.78-2.19) 05/09/17 02:30 TSH 3rd Generation 1.88 mIU/mL (0.46-4.68) 05/09/17 02:30 - Hospital Course Hospital Course: This patient is a 57 year old male with a PMHx of CAD w/ 10 stents, HTN, Hypothyroidism, HLD, DM II, and Right Lower Ext. edema who presented complaining of bilateral lower extremity edema with associated tenderness x 1 week and chest pain x 1 day. Patient denied any inciting factors that could have caused the edema. Patient attempted his home lasix to try to self treat the edema without success. Patient admit to dyspnea on exertion but denies any orthopnea. Patient stated the chest pain began yesterday around 11 pm and described it as "tight" and states the pain radiates to his back. While home patient did not attempt any modalities to treat the pain but states it was relieved with the NitroPatch. He does admit to palpitations, and intermittent headaches/dizziness within the past week. Patient had one episode of NBNB vomiting yesterday. He currently denies any nausea. Chest x-ray was ordered which revealed pulmonary vascular congestion however no cardiomegaly. EKG was significant for past infarcts and LVH. Cardiology was consulted and catheterization was performed which resulted in successful PTCA and stent of the mid RCA stenoses with a drug eluting stent. Coronary arteriography revealed normal LV function with multivessel coronary artery disease. As per cardiology recommendations considering patient's non compliance with medications and diet, patient will need to undergo a cardiac risk reduction program as well as remain on aspirin indefinitely and plavix for at least one year. Case discussed and reviewed with Dr. Tracey New PGY1 Discharge Exam - Head Exam Head Exam: ATRAUMATIC, NORMAL INSPECTION, NORMOCEPHALIC - Eye Exam Eye Exam: EOMI, Normal appearance - ENT Exam ENT Exam: Mucous Membranes Moist, Normal Exam - Neck Exam Neck exam: Normal Inspection - Respiratory Exam Respiratory Exam: Clear to PA & Lateral, NORMAL BREATHING PATTERN - Cardiovascular Exam Cardiovascular Exam: REGULAR RHYTHM, +S1, +S2 - GI/Abdominal Exam GI & Abdominal Exam: Normal Bowel Sounds, Unremarkable - Neurological Exam Neurological exam: Alert, Oriented x3 - Psychiatric Exam Psychiatric exam: Normal Affect, Normal Mood - Skin Skin Exam: Normal Color, Warm Additional comments: no hematoma noed at cath site Discharge Plan - Discharge Medications Prescriptions: Aspirin [Ecotrin] 81 mg PO DAILY 14 Days #14 tabec Clopidogrel [Plavix] 75 mg PO DAILY 14 Days #14 tab MetFORMIN [glucoPHAGE] 1,000 mg PO BID #14 tab - Follow Up Plan Condition: GOOD Disposition: HOME/ ROUTINE Instructions: Type 2 Diabetes, Cardiac Catheterization, Coronary Stenting, Heart Healthy Diet, Diabetes Diet , Coronary Heart Disease (DC) Additional Instructions: 1. Please follow up with your primary care doctor within 3-5 days regarding this admission. 2. As discussed, it is imperative to change your lifestyle with regards to your diet and you level of activity, please try to do so. 3. Please follow up with your psychological operations specialist Dr. Russo in 2 weeks for further prescriptions and follow up appointment. 4. Do not hesitate to return to the emergency department if symptoms worsen or persist. Referrals: Obed Santos MD [Primary Care Provider] - Rashad Russo MD [Staff Provider] - <Justice Webb - Last Filed: 05/10/17 14:57> Provider - Provider Date of Admission: 05/09/17 04:00 Attending physician: Justice Webb MD Primary care physician: [facility] Course - Lab Results Lab Results: Most Recent Lab Values WBC 5.9 10^3/ul (4.5-11.0) 05/10/17 06:00 RBC 4.13 10^6/uL (3.5-6.1) 05/10/17 06:00 Hgb 13.1 g/dL (14.0-18.0) L 05/10/17 06:00 Hct 38.5 % (42.0-52.0) L 05/10/17 06:00 MCV 93.2 fl (80.0-105.0) 05/10/17 06:00 MCH 31.7 pg (25.0-35.0) 05/10/17 06:00 MCHC 34.0 g/dl (31.0-37.0) 05/10/17 06:00 RDW 13.7 % (11.5-14.5) 05/10/17 06:00 Plt Count 94 10^3/uL (120.0-450.0) L 05/10/17 06:00 MPV 10.4 fl (7.0-11.0) 05/10/17 06:00 Gran % 48.6 % (50.0-68.0) L 05/10/17 06:00 Lymph % (Auto) 31.3 % (22.0-35.0) 05/10/17 06:00 Davie % (Auto) 15.7 % (1.0-6.0) H 05/10/17 06:00 Eos % (Auto) 3.7 % (1.5-5.0) 05/10/17 06:00 Baso % (Auto) 0.7 % (0.0-3.0) 05/10/17 06:00 Gran # 2.85 (1.4-6.5) 05/10/17 06:00 Lymph # (Auto) 1.8 (1.2-3.4) 05/10/17 06:00 Davie # (Auto) 0.9 (0.1-0.6) H 05/10/17 06:00 Eos # (Auto) 0.2 (0.0-0.7) 05/10/17 06:00 Baso # (Auto) 0.04 K/mm3 (0.0-2.0) 05/10/17 06:00 PT 14.9 SECONDS (9.4-12.5) H 05/09/17 02:20 INR 1.30 (0.93-1.08) H 05/09/17 02:20 APTT 30.5 Seconds (25.1-36.5) 05/09/17 02:20 Sodium 142 mmol/L (132-148) 05/10/17 06:00 Potassium 3.6 mmol/L (3.6-5.0) 05/10/17 06:00 Chloride 109 mmol/L (98-107) H 05/10/17 06:00 Carbon Dioxide 28 mmol/L (21-33) 05/10/17 06:00 Anion Gap 9 (10-20) L 05/10/17 06:00 BUN 10 mg/dL (7-21) 05/10/17 06:00 Creatinine 0.7 mg/dl (0.8-1.5) L 05/10/17 06:00 Est GFR ( Amer) > 60 05/10/17 06:00 Est GFR (Non-Af Amer) > 60 05/10/17 06:00 POC Glucose (mg/dL) 295 mg/dL (65-110) H 05/10/17 11:26 Random Glucose 180 mg/dL (70-110) H 05/10/17 06:00 Hemoglobin A1c 8.9 % (4.2-6.5) H 05/09/17 02:30 Calcium 8.6 mg/dL (8.4-10.5) 05/10/17 06:00 Phosphorus 3.6 mg/dL (2.5-4.5) 05/10/17 06:00 Magnesium 1.8 mg/dL (1.7-2.2) 05/10/17 06:00 Total Bilirubin 1.3 mg/dL (0.2-1.3) 05/10/17 06:00 AST 92 U/L (17-59) H D 05/10/17 06:00 ALT 58 U/L (7-56) H 05/10/17 06:00 Alkaline Phosphatase 92 U/L (38-126) 05/10/17 06:00 Lactate Dehydrogenase 749 U/L (333-699) H 05/09/17 02:20 Total Creatine Kinase 152 U/L (35-230) 05/09/17 02:20 Troponin I 0.02 ng/mL 05/09/17 02:20 NT-Pro-B Natriuret Pep 139 pg/mL (0-450) 05/09/17 02:30 Total Protein 6.8 g/dL (5.8-8.3) 05/10/17 06:00 Albumin 2.9 g/dL (3.0-4.8) L 05/10/17 06:00 Globulin 3.9 gm/dL 05/10/17 06:00 Albumin/Globulin Ratio 0.8 (1.1-1.8) L 05/10/17 06:00 Triglycerides 153 mg/dL (35-160) 05/09/17 02:30 Cholesterol 221 mg/dL (130-200) H 05/09/17 02:30 LDL Cholesterol Direct 136 mg/dL (0-129) H 05/09/17 02:30 HDL Cholesterol 46 mg/dL (29-60) 05/09/17 02:30 Free T4 0.91 ng/dL (0.78-2.19) 05/09/17 02:30 TSH 3rd Generation 1.88 mIU/mL (0.46-4.68) 05/09/17 02:30 Attending/Attestation - Attestation I have personally seen and examined this patient.: Yes I have fully participated in the care of the patient.: Yes I have reviewed all pertinent clinical information, including history, physical exam and plan: Yes Notes (Text): I have seen and examined the patient at bedside. Agree with the above note with the following additions/ exceptions: Briefly this is 57 year morbidly obese male with history of CAD s/p multiple stents, HTN, Hypothyroidism, HLD, DM II, non compliance and Right Lower Ext. edema who was admitted for bilateral LE edema and chest pain. Due to multiple risk factors, patient was taken to qc lab technician and stent was placed in RCA. Dr Russo advised the patient to take aspirin, plavix, beta jaycob and welchol. Patient cannot tolerate lipitor. LFTs are elevated. Hep panel ws negative upon last admission. Will advise patient to have repeat LFTs as an outpatient. Advised him regarding the importance of heart healthy and carb consistent diet. Patient feels fine today and wants to go home. Life style modification advised. Recommended to follow up with Dr Russo within 1-2 weeks and follow up with Dr Santos within 3-[address] Justice Webb
[2017-05-10] MEDS: Levothyroxine 50 MCG TAB PO SCH (06:33)
[2017-05-10 06:39] LABS: BASO # 0.04 K/mm3 (0.0-2.0); BASO % 0.7 % (0.0-3.0); EOS # 0.2 (0.0-0.7); EOS % 3.7 % (1.5-5.0); GRAN # 2.85 (1.4-6.5); GRAN % 48.6 % (50.0-68.0); HEMOGLOBIN 13.1 g/dL (14.0-18.0); LYMPH # 1.8 (1.2-3.4); LYMPH % 31.3 % (22.0-35.0); MEAN CELL VOLUME 93.2 fl (80.0-105.0); MEAN CORPUSCULAR HEMOGLOBIN 31.7 pg (25.0-35.0); MEAN PLATELET VOLUME 10.4 fl (7.0-11.0); MONO # 0.9 (0.1-0.6); MONO % 15.7 % (1.0-6.0); RBC 4.13 10^6/uL (3.5-6.1); RED CELL DISTRIBUTION WIDTH 13.7 % (11.5-14.5); WHITE BLOOD COUNT 5.9 10^3/ul (4.5-11.0)
[2017-05-10 07:01] LABS: ALB/GLOB RATIO 0.8 (1.1-1.8); ALBUMIN 2.9 g/dL (3.0-4.8); ALT/SGPT 58 U/L (7-56); AST/SGOT 92 U/L (17-59); BLOOD UREA NITROGEN 10 mg/dL (7-21); CALCIUM 8.6 mg/dL (8.4-10.5); GFR AFRICAN-AMERICAN > 60; GFR NON-AFRICAN AMERICAN > 60; MAGNESIUM 1.8 mg/dL (1.7-2.2)
[2017-05-10] MEDS: Insulin Lispro (humaLOG) LOW Coverage SC SCH ×2 (07:57→12:05)
--- NOTE | 2017-05-10 09:35 | CARD ---
APPROVED REPORT EXAM: Two-dimensional and M-mode echocardiogram with Doppler and color Doppler. INDICATION Chest Pain 2D DIMENSIONS LVOT Diameter2.1 (1.8-2.4cm)FS (%) 19.3 % M-Mode DIMENSIONS Aortic Cusp Exc.1.70 (1.5-2.0cm) Aortic Valve AoV Peak Ouzaadsl484.0cm/s Mitral Valve MV E Rbundpyq94.2cm/sMV A Dobryzsa16.8cm/sE/A ratio0.7 TDI Lateral E' Peak V8.38cm/sMedial E' Peak V7.90cm/sE/Lateral E'7.7 E/Medial E'8.1 Tricuspid Valve TR Peak Fqchlxob315ra/sRAP [id number] Peak Gr.19mmHg [id number] GREAT VESSELS The aortic root is normal in size. PERICARDIAL EFFUSION There is no pericardial effusion. <Conclusion> Very poor quality study. No useful clinical information. Study done on supine patient apparently. The aortic valve appears sclerotic. No pericardial effusion No MS. Cannot evaluate LV regional wall motion. Suggest repeat study.
[2017-05-10] MEDS: COLESEVELAM HCL 625 MG PO SCH (10:30)
[2017-05-10] MEDS: Omega-3-Acid Ethyl Esters 1 GM Cap PO SCH (10:42)
[2017-05-10 12:18] VITALS: BP 119/52; PULSE 76; RESP 19; TEMP 98.3
--- NOTE | 2017-05-11 08:11 | CARD ---
APPROVED REPORT EKG Measurement Heart [id number] [place] 188P15 [id number] <Conclusion> Normal sinus rhythm Septal infarct, age undetermined T wave abnormality, consider lateral ischemia Prolonged QTc No change
--- NOTE | 2017-05-12 09:59 | US ---
PROCEDURE: Lower extremity GYPSY exam HISTORY: Peripheral vascular disease with pain and claudication. Previous smoker. Diabetes. PHYSICIAN(S): Rashad Olivo MD. FINDINGS: The resting GYPSY's are normal: right, 1.21and left, 1.22. The brachial systolic pressures are symmetric. The low thigh pressures and waveforms are relatively normal. The calf PVR waveforms augment normally. No significant gradients are noted across the thighs. The ankle and metatarsal waveforms are relatively normal and symmetric. No significant pressure gradients are noted across the lower legs. IMPRESSION: 1. Normal GYPSY and PVR examination at rest.
== END 2017-05-10 14:10 | disposition home or self-care (01) ==
LOC: ED 02:16 → ERH 04:00 → 2RNO 05:43
PROVIDERS: ADMIT Internal Medicine; ATTEND Hospitalist
DX: I21.4 Non-ST elevation (NSTEMI) myocardial infarction (principal); I25.110 Atherosclerotic heart disease of native coronary artery with unstable angina pectoris; I10 Essential (primary) hypertension; E78.5 Hyperlipidemia, unspecified; E03.9 Hypothyroidism, unspecified; L03.116 Cellulitis of left lower limb; L03.115 Cellulitis of right lower limb; E11.9 Type 2 diabetes mellitus without complications; E66.01 Morbid (severe) obesity due to excess calories; Z68.41 Body mass index [BMI] 40.0-44.9, adult; Z95.5 Presence of coronary angioplasty implant and graft; Z91.11 Patient's noncompliance with dietary regimen; Z91.14 Patient's other noncompliance with medication regimen; Z79.4 Long term (current) use of insulin
CPT/HCPCS: 36415; 71046; 80053; 80061; 82550; 82948; 83036; 83615; 83735; 83880; 84100; 84439; 84443; 84484; 85025; 85610; 85730; 92920; 93005; 93306; 93458; 93923; 93970; 96372; 96374; 96376; 99152; 99153; 99285; C1725; C1760; C1769; C1874; C1887; C2629; C9600; G0378; J0583; J1644; J1940; J2250; J3010; J7030; J7040; Q9967

== ENCOUNTER 2017-11-04 12:24 | Inpatient (IN) | payer MEDICARE, MEDICAID ==
[2017-11-04 11:55] VITALS: BMI 41.3
[2017-11-04 12:24] LABS: BASO # 0.03 K/mm3 (0.0-2.0); BASO % 0.5 % (0.0-3.0); EOS # 0.2 (0.0-0.7); EOS % 2.5 % (1.5-5.0); GRAN # 2.76 (1.4-6.5); MEAN CELL VOLUME 88.5 fl (80.0-105.0); MEAN CORPUSCULAR HEMOGLOBIN 31.1 pg (25.0-35.0); MEAN CORPUSCULAR HGB CONC 35.1 g/dl (31.0-37.0); MEAN PLATELET VOLUME 11.1 fl (7.0-11.0); MONO # 1.1 (0.1-0.6); RBC 4.18 10^6/uL (3.5-6.1); RED CELL DISTRIBUTION WIDTH 13.5 % (11.5-14.5)
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
[2017-11-04 12:36] LABS: INR 1.23; PARTIAL THROMBOPLASTIN TIME 28.4 Seconds (25.1-36.5); PROTHROMBIN TIME 14.2 SECONDS (9.4-12.5)
--- NOTE | 2017-11-04 12:47 | CT ---
Date of service: 11/04/2017 PROCEDURE: CT HEAD WITHOUT CONTRAST. HISTORY: altered mental status COMPARISON: 05/18/2014 TECHNIQUE: Axial computed tomography images were obtained through the head/brain without intravenous contrast. Radiation dose: Total exam DLP = 885 mGy-cm. This CT exam was performed using one or more of the following dose reduction techniques: Automated exposure control, adjustment of the mA and/or kV according to patient size, and/or use of iterative reconstruction technique. FINDINGS: HEMORRHAGE: No intracranial hemorrhage. BRAIN: No mass effect or edema. No atrophy or chronic microvascular ischemic changes. VENTRICLES: Unremarkable. No hydrocephalus. CALVARIUM: Unremarkable. PARANASAL SINUSES: Unremarkable as visualized. No significant inflammatory changes. MASTOID AIR CELLS: Unremarkable as visualized. No inflammatory changes. OTHER FINDINGS: None. IMPRESSION: No acute findings
[2017-11-04 12:52] LABS: ALB/GLOB RATIO 0.8 (1.1-1.8); ALBUMIN 3.5 g/dL (3.0-4.8); ALT/SGPT 43 U/L (7-56); AST/SGOT 57 U/L (17-59); BLOOD UREA NITROGEN 8 mg/dL (7-21); GFR AFRICAN-AMERICAN > 60; GFR NON-AFRICAN AMERICAN > 60; TROPONIN I < 0.01 ng/mL
[2017-11-04 12:57] LABS: FREE T4 0.94 ng/dL (0.78-2.19)
--- NOTE | 2017-11-04 13:14 | RAD ---
Date of service: 11/04/2017 HISTORY: altered mental status COMPARISON: 05/09/2017 TECHNIQUE: Chest PA and lateral FINDINGS: LUNGS: No active pulmonary disease. PLEURA: No significant pleural effusion identified. No pneumothorax apparent. CARDIOVASCULAR: Normal. OSSEOUS STRUCTURES: No significant abnormalities. VISUALIZED UPPER ABDOMEN: Normal. OTHER FINDINGS: None. IMPRESSION: No active disease.
[2017-11-04] MEDS ORDERED: Insulin Regular 1 UNITS/0.01 ML ML SC STA (13:57)
[2017-11-04] MEDS ORDERED: Sodium Chloride 0.9% 1,000 ML IV STA ×2 (13:59→15:47)
[2017-11-04 17:00] LABS: AMYLASE 84 U/L (35-125); HDL CHOLESTEROL 47 mg/dL (29-60); LIPASE 211 U/L (23-300)
[2017-11-04 17:11] LABS: LDL CHOLESTEROL 106 mg/dL (0-129)
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
[2017-11-04 18:09] LABS: B-TYPE NATRIURETIC PEPTIDE 140 pg/mL (0-450); TROPONIN I < 0.01 ng/mL
[2017-11-04] MEDS: Levothyroxine 50 MCG TAB PO SCH (18:59)
[2017-11-04] MEDS: Omega-3-Acid Ethyl Esters 1 GM Cap PO SCH (18:59)
[2017-11-04] MEDS: Sodium Chloride 0.9% 1,000 ML IV SCH (19:13)
--- NOTE | 2017-11-04 21:02 | CARD ---
APPROVED REPORT Date of service: 11/04/2017 EKG Measurement Heart [id number] <Conclusion> Normal sinus rhythm Moderate voltage criteria for LVH, may be normal variant Inferior infarct, age undetermined Anteroseptal infarct, age undetermined Abnormal ECG
[2017-11-04] MEDS: Insulin Lispro (HUMAlog) HIGH Coverage SC SCH (21:39)
[2017-11-04] MEDS ORDERED: Pneumococcal 23-Valent Vaccine IM ONE (21:51)
[2017-11-04] MEDS ORDERED: Insulin Detemir 100 units/ml Vial (Levemir) SC SCH (22:00)
[2017-11-05 04:18] LABS: BASO # 0.05 K/mm3 (0.0-2.0); BASO % 0.9 % (0.0-3.0); EOS # 0.2 (0.0-0.7); EOS % 3.1 % (1.5-5.0); GRAN # 2.58 (1.4-6.5); GRAN % 44.5 % (50.0-68.0); HEMOGLOBIN 12.7 g/dL (14.0-18.0); LYMPH # 2.3 (1.2-3.4); LYMPH % 38.9 % (22.0-35.0); MEAN CELL VOLUME 88.9 fl (80.0-105.0); MEAN CORPUSCULAR HEMOGLOBIN 31.4 pg (25.0-35.0); MEAN CORPUSCULAR HGB CONC 35.4 g/dl (31.0-37.0); MEAN PLATELET VOLUME 10.2 fl (7.0-11.0); MONO # 0.7 (0.1-0.6); MONO % 12.6 % (1.0-6.0); RBC 4.04 10^6/uL (3.5-6.1); RED CELL DISTRIBUTION WIDTH 13.6 % (11.5-14.5); WHITE BLOOD COUNT 5.8 10^3/ul (4.5-11.0)
[2017-11-05 05:54] LABS: ALB/GLOB RATIO 0.8 (1.1-1.8); ALBUMIN 3.2 g/dL (3.0-4.8); ALT/SGPT 51 U/L (7-56); AST/SGOT 63 U/L (17-59); BLOOD UREA NITROGEN 7 mg/dL (7-21); CALCIUM 8.5 mg/dL (8.4-10.5); GFR AFRICAN-AMERICAN > 60; GFR NON-AFRICAN AMERICAN > 60
[2017-11-05] MEDS: Pantoprazole 40 mg EC Tab PO SCH (07:40)
[2017-11-05] MEDS: Levothyroxine 50 MCG TAB PO SCH (07:41)
[2017-11-05] MEDS: Insulin Lispro (HUMAlog) HIGH Coverage SC SCH ×4 (08:12→21:52)
[2017-11-05] MEDS: Omega-3-Acid Ethyl Esters 1 GM Cap PO SCH ×2 (09:13→17:36)
[2017-11-05] MEDS: Enoxaparin 40 mg Syringe SC SCH (09:14)
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
[2017-11-05] MEDS ORDERED: Insulin Detemir 100 units/ml Vial (Levemir) SC SCH (10:00)
[2017-11-05 10:21] LABS: BILIRUBIN,DIRECT 0.3 mg/dL (0.0-0.4)
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
[2017-11-05 16:01] LABS: PH,URINE 6.5 (4.7-8.0); URINE BILIRUBIN NEGATIVE (NEGATIVE); URINE BLOOD NEGATIVE (NEGATIVE); URINE GLUCOSE (UA) >=1000 mg/dL (NEGATIVE); URINE LEUKOCYTE ESTERASE NEGATIVE Leu/uL (NEGATIVE); URINE PROTEIN NEGATIVE mg/dL (<30 mg/dL)
[2017-11-05 16:30] LABS: URINE APPEARANCE CLEAR (CLEAR); URINE COLOR YELLOW (YELLOW)
--- NOTE | 2017-11-05 16:30 | MRI ---
Date of service: 11/05/2017 PROCEDURE: MRI BRAIN WITHOUT CONTRAST HISTORY: AMS, possible stroke COMPARISON: None available. TECHNIQUE: Multiplanar, multisequence MR images of the brain were obtained without intravenous contrast enhancement. FINDINGS: HEMORRHAGE: None DWI: No evidence of an acute or early subacute infarction. BRAIN PARENCHYMA: No mass effect or edema. No atrophy or chronic microvascular ischemic changes. VENTRICLES: Unremarkable. No hydrocephalus. CRANIUM: Unremarkable. ORBITS: Grossly unremarkable. PARANASAL SINUSES/MASTOIDS: Clear VASCULAR SYSTEM: Skull base flow voids intact. OTHER FINDINGS: None. IMPRESSION: Unremarkable non contrast enhanced MRI of the brain.
--- NOTE | 2017-11-05 18:13 | US ---
PROCEDURE: Bilateral carotid artery duplex ultrasound HISTORY: Carotid stenosis PHYSICIAN(S): Rashad Olivo MD. TECHNIQUE: Duplex sonography and color-flow Doppler were used to evaluate the carotid bifurcations and limited segments of the vertebral arteries bilaterally. The exam is limited by body habitus FINDINGS: There is mild smooth heterogeneous plaque noted at the carotid bifurcations bilaterally. The peak systolic velocity in the proximal right internal carotid artery is 69 cm/sec. This corresponds to a 20 to 39% proximal right ICA stenosis. Normal systolic velocities are noted in the proximal right external carotid artery. There is antegrade flow in the small right vertebral artery. The peak systolic velocity in the proximal left internal carotid artery is 92 cm/sec. This corresponds to a 20 to 39% proximal left ICA stenosis. Normal systolic velocities are noted in the proximal left external carotid artery. There is antegrade flow in the left vertebral artery. IMPRESSION: 1. Bilateral 20-39% proximal ICA stenoses. 2. Antegrade flow in both vertebral arteries.
--- NOTE | 2017-11-05 18:17 | CARD ---
APPROVED REPORT Date of service: 11/05/2017 EXAM: Two-dimensional and M-mode echocardiogram with Doppler and color Doppler. INDICATION EVALUATE LVFX 2D DIMENSIONS Left Atrium (2D)4.2 (1.6-4.0cm)IVSd1.5 (0.7-1.1cm) LVDd5.3 (3.9-5.9cm)PWd1.4 (0.7-1.1cm) LVDs3.8 (2.5-4.0cm)FS (%) 27.9 % LVEF (%)53.7 (>50%) M-Mode DIMENSIONS Aortic Root3.70 (2.2-3.7cm)Aortic Cusp Exc.1.30 (1.5-2.0cm) Aortic Valve AoV Peak Ifkoqcls396.0cm/sAoV VTI25.0cmAO Peak GR.7mmHg LVOT Peak Knvkhghp340.0cm/sLVOT VTI18.30cmAO Mean GR.5mmHg Mitral Valve MV E Adkoveqt21.7cm/sMV A Rlglzidp45.5cm/sE/A ratio0.8 TDI Lateral E' Peak V8.19cm/sMedial E' Peak V5.36cm/sE/Lateral E'7.9 E/Medial E'12.1 Pulmonary Valve PV Peak Rxzpvebc50.5cm/sPV Peak Grad.3mmHg Tricuspid Valve TR Peak Wqnjfeoy131yl/sRAP [id number] Peak Gr.23mmHg [id number] LEFT VENTRICLE The left ventricle is normal size. There is mild concentric left ventricular hypertrophy. The left ventricular function is normal.EF-55% There is normal LV segmental wall motion. Transmitral Doppler flow pattern is Grade III-reversible restrictive diastolic dysfunction. No left ventricle thrombus noted on this study. There is no ventricular septal defect visualized. There is no left ventricular aneurysm. There is no mass noted in the left ventricle. RIGHT VENTRICLE The right ventricle is normal size. There is normal right ventricular wall thickness. The right ventricular systolic function is normal. ATRIA The left atrium is borderline dilated. The right atrium size is normal. The interatrial septum is intact with no evidence for an atrial septal defect. AORTIC VALVE The aortic valve is calcified but opens well. There is trace aortic regurgitation. Aortic sclerosis Vs mils There is no aortic valvular vegetation. MITRAL VALVE The mitral valve is thickened but opens well. Mitral annular calcification is mild to moderate. Mitral regurgitation is trace. There is no mitral valve stenosis. There is no evidence of mitral valve prolapse. TRICUSPID VALVE The tricuspid valve leaflets are thickened , but open well. There is trace tricuspid regurgitation.RVsp-33 mmof Hg. There is no tricuspid valve stenosis. There is no tricuspid valve prolapse or vegetation. PULMONIC VALVE The pulmonic valve is borderline thickened. There is trace pulmonic valvular regurgitation. There is no pulmonic valvular stenosis. GREAT VESSELS The aortic root is normal in size. The ascending aorta is normal in size. The pulmonary artery is normal. The IVC is normal in size and collapses >50% with inspiration. PERICARDIAL EFFUSION There is no pleural effusion. There is no pericardial effusion. <Conclusion> The left ventricle is normal size. There is mild concentric left ventricular hypertrophy. The left ventricular function is normal.EF-55% The aortic valve is calcified but opens well. There is trace aortic regurgitation. Aortic sclerosis Vs mils Mitral regurgitation is trace. There is trace tricuspid regurgitation.RVsp-33 mmof Hg. There is trace pulmonic valvular regurgitation. There is no pericardial effusion. No Vegetation or thrombus noted.
[2017-11-06] MEDS: Sodium Chloride 0.9% 1,000 ML IV SCH (04:28)
[2017-11-06 06:28] LABS: BASO # 0.03 K/mm3 (0.0-2.0); BASO % 0.5 % (0.0-3.0); EOS # 0.2 (0.0-0.7); EOS % 2.8 % (1.5-5.0); GRAN # 2.69 (1.4-6.5); GRAN % 44.3 % (50.0-68.0); HEMOGLOBIN 12.1 g/dL (14.0-18.0); LYMPH # 2.3 (1.2-3.4); LYMPH % 37.3 % (22.0-35.0); MEAN CELL VOLUME 89.2 fl (80.0-105.0); MEAN CORPUSCULAR HEMOGLOBIN 31.1 pg (25.0-35.0); MEAN CORPUSCULAR HGB CONC 34.9 g/dl (31.0-37.0); MEAN PLATELET VOLUME 10.9 fl (7.0-11.0); MONO # 0.9 (0.1-0.6); MONO % 15.1 % (1.0-6.0); RBC 3.89 10^6/uL (3.5-6.1); RED CELL DISTRIBUTION WIDTH 13.7 % (11.5-14.5); WHITE BLOOD COUNT 6.1 10^3/ul (4.5-11.0)
[2017-11-06 07:15] LABS: ALB/GLOB RATIO 0.8 (1.1-1.8); ALBUMIN 3.1 g/dL (3.0-4.8); ALT/SGPT 39 U/L (7-56); AST/SGOT 53 U/L (17-59); BLOOD UREA NITROGEN 10 mg/dL (7-21); CALCIUM 8.2 mg/dL (8.4-10.5); GFR AFRICAN-AMERICAN > 60; GFR NON-AFRICAN AMERICAN > 60
[2017-11-06] MEDS: Pantoprazole 40 mg EC Tab PO SCH (08:31)
[2017-11-06] MEDS: Insulin Lispro (HUMAlog) HIGH Coverage SC SCH ×3 (08:32→17:41)
[2017-11-06] MEDS: Levothyroxine 50 MCG TAB PO SCH (08:32)
--- NOTE | 2017-11-06 09:29 | CP.PCM.PN ---
Subjective - Date & Time of Evaluation Date of Evaluation: 11/06/17 Time of Evaluation: 09:44 - Subjective Subjective: Thanh Hermosillo PGY2 Neurology Progress Note for Dr. Mac Patient was seen and examined at bedside. There were no acute overnight events. The patient denies any headaches, changes in vision/hearing, dizziness , unsteady gait, chest pain, shortness of breath, abdominal pain. MRI brain was done and was unremarkable. Carotid US was also done, and was unremarkable. Echo was reviewed and is unremarkable. Objective - Vital Signs/Intake and Output Vital Signs (last 24 hours): Temp Pulse Resp BP Pulse Ox 99.4 F 96 H 16 187/85 H 100 11/06/17 07:54 11/06/17 07:54 11/06/17 07:54 11/06/17 07:54 11/06/17 07:54 Intake and Output: 11/06/17 11/06/17 06:59 18:59 Intake Total 620 Output Total 750 Balance -130 - Medications Medications: Current Medications Aspirin (Ecotrin) 81 mg PO DAILY [facility] Last Admin: 11/05/17 09:12 Dose: Not Given Atenolol (Tenormin) 50 mg PO DAILY [facility] Last Admin: 11/05/17 09:14 Dose: Not Given Clopidogrel Bisulfate (Plavix) 75 mg PO DAILY [facility] Last Admin: 11/05/17 09:14 Dose: Not Given Enoxaparin Sodium (Lovenox) 40 mg SC DAILY [facility] PRN Reason: Protocol Last Admin: 11/05/17 09:14 Dose: 40 mg Furosemide (Lasix) 20 mg PO DAILY [facility] Last Admin: 11/05/17 09:13 Dose: Not Given Insulin Detemir (Levemir) 25 unit SC Q12 [facility] Insulin Human Lispro (Humalog High) 0 units SC ACHS [facility] PRN Reason: Protocol Last Admin: 11/06/17 08:32 Dose: 4 unit Levothyroxine Sodium (Synthroid) 50 mcg PO ACB [facility] Last Admin: 11/06/17 08:32 Dose: 50 mcg Lisinopril (Zestril) 5 mg PO DAILY [facility] Non-Formulary Medication (Colesevelam Hcl [Welchol]) 625 mg PO TID [facility] Last Admin: 11/05/17 17:35 Dose: Not Given [id number] Ethyl Esters (Lovaza) 2 gm PO BID [facility] Last Admin: 11/05/17 17:36 Dose: 2 gm Pantoprazole Sodium (Protonix Ec Tab) 40 mg PO ACB [facility] Last Admin: 11/06/17 08:31 Dose: 40 mg - Labs Labs: 11/06/17 05:30 11/06/17 05:30 PT 14.2 SECONDS (9.4-12.5) H 11/04/17 12:00 INR 1.23 11/04/17 12:00 APTT 28.4 Seconds (25.1-36.5) 11/04/17 12:00 - Additional Findings Additional findings: - Constitutional Appears: Well, Non-toxic, No Acute Distress - Head Exam Head Exam: NORMAL INSPECTION - Eye Exam Eye Exam: EOMI, Normal appearance, PERRL Pupil Exam: NORMAL ACCOMODATION - ENT Exam ENT Exam: Mucous Membranes Moist, Normal Exam - Neck Exam Neck exam: Positive for: Normal Inspection - Respiratory Exam Respiratory Exam: NORMAL BREATHING PATTERN. absent: Respiratory Distress - Cardiovascular Exam Cardiovascular Exam: RRR, +S1, +S2 - GI/Abdominal Exam GI & Abdominal Exam: Normal Bowel Sounds, Soft. absent: Distended, Tenderness - Extremities Exam Extremities exam: Positive for: full ROM, normal inspection - Back Exam Back exam: NORMAL INSPECTION - Neurological Exam Neurological exam: Alert, CN II-XII Intact, Oriented x3, Reflexes Normal Additional comments: no motor sensory deficits good 3 item recall - Psychiatric Exam Psychiatric exam: Normal Mood - Skin Skin Exam: Normal Color, Warm Assessment and Plan - Assessment and Plan (Free Text) Assessment: 57-year-old [place] male with a PMH of CAD, HTN, hypothyroid, HLD and DM 2 who presented to the ED for an episode of confusion and self defecation while urinating during sleep, as noted by his . Brain imaging was done and was unremarkable, indicating that CVA or TIA are unlikely. EKG was NSR with moderate LVH. EEG showed generalized slowing, indicating possible seizure and post-ictal state. His uncontrolled diabetes could also play a role in the presentation. Plan: AMS, resolved, likely multi-factorial due to post-ictal state and poor glycemic control - PT/OT cleared patient for home - EEG showed diffuse slowing - will start Keppra 1000mg x1, then can be discharged on Keppra 500mg PO BID - patient needs to follow-up with Dr. Mac as outpatient in 2 weeks for medication adjustment and further seizure work-up - Psych is consulted, recs appreciated - Continue ASA 81mg PO daily - Strict glycemic control - diabetic education - Patient can be safely discharged neurologically - DVT and GI ppx - Further recs per Dr. Mac Case was reviewed and discussed with attending, Dr. Bubba Hermosillo PGY2
[2017-11-06] MEDS: Omega-3-Acid Ethyl Esters 1 GM Cap PO SCH ×2 (09:56→17:37)
[2017-11-06] MEDS: Enoxaparin 40 mg Syringe SC SCH (09:57)
[2017-11-06] MEDS ORDERED: levETIRAcetam 1,000 MG in Sodium Chloride 0.9% 100 ML IV ONE (13:56)
[2017-11-06] MEDS ORDERED: Insulin Lispro (HUMAlog) HIGH Coverage SC SCH (16:30)
[2017-11-06 17:03] VITALS: BP 138/82; RESP 18; TEMP 98.4; O2SAT 98
[2017-11-06 20:23] VITALS: PULSE 82
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
[2017-11-06] MEDS ORDERED: INSULIN GLARGINE HUM REC ANLOG 50 UNIT SC SCH (22:00)
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
== END 2017-11-06 20:30 | disposition home or self-care (01) | DRG 638 ==
LOC: ED 12:24 → ERH 16:16 → 3RNO 18:26 → OBSVTOIN 11-05 12:41
PROVIDERS: ADMIT Hospitalist; ATTEND Internal Medicine
DX: E11.649 Type 2 diabetes mellitus with hypoglycemia without coma (principal); E87.0 Hyperosmolality and hypernatremia; Z68.41 Body mass index [BMI] 40.0-44.9, adult; E11.65 Type 2 diabetes mellitus with hyperglycemia; E78.5 Hyperlipidemia, unspecified; E78.00 Pure hypercholesterolemia, unspecified; E03.9 Hypothyroidism, unspecified; I10 Essential (primary) hypertension; I25.10 Atherosclerotic heart disease of native coronary artery without angina pectoris; I25.2 Old myocardial infarction; R56.9 Unspecified convulsions; E66.9 Obesity, unspecified; R41.82 Altered mental status, unspecified; Z79.02 Long term (current) use of antithrombotics/antiplatelets; Z79.4 Long term (current) use of insulin; Z79.82 Long term (current) use of aspirin; Z82.3 Family history of stroke; Z83.3 Family history of diabetes mellitus; Z95.5 Presence of coronary angioplasty implant and graft; Z87.81 Personal history of (healed) traumatic fracture

== ENCOUNTER 2017-12-19 17:53 | Inpatient (IN) | payer MEDICARE, MEDICAID ==
[2017-12-19] MEDS ORDERED: Nitroglycerin 2% Ointment Foilpak UD TOP STA (18:06)
--- NOTE | 2017-12-19 18:12 | ED PDOC ---
Arrival/HPI - General Chief Complaint: Chest Pain Time Seen by Provider: 12/19/17 17:57 Historian: Patient, EMS - History of Present Illness Time/Duration: > month Symptom Onset: Gradual Symptom Course: Unchanged Quality: Aching Severity Level: Moderate Activities at Onset: Rest Associated Symptoms (Text): 12/19/17 18:09 Patient complains of approximately a 1 month history of chest pain which he describes as an aching along with shortness of breath and insomnia. 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 History of coronary artery disease and multiple stent placement last May 09, 2017. He is taking his aspirin and Plavix. History of a GI bleed. He is morbidly obese. Past Medical History - Infectious Disease Hx of Infectious Diseases: None - Tetanus Immunization Tetanus Immunization: Unknown - Pulmonary Hx Asthma: Yes - Neurological Hx Neurological Disorder: Yes Other/Comment: "Early dementia, ,memory loss" - HEENT Hx HEENT Disorder: No - Renal Hx Renal Disorder: No - Endocrine/Metabolic Hx Hypothyroidism: Yes - Hematological/Oncological Hx Blood Disorders: No - Integumentary Hx Dermatological Disorder: No - Musculoskeletal/Rheumatological Hx Falls: No - Gastrointestinal Hx Gastrointestinal Disorders: No - Genitourinary/Gynecological Hx Genitourinary Disorders: No - Psychiatric Hx Substance Use: No - Surgical History Hx Appendectomy: Yes Hx Coronary Stent: Yes - Anesthesia Hx Anesthesia: Yes Hx Anesthesia Reactions: No Hx Malignant Hyperthermia: No - Suicidal Assessment Feels Threatened In Home Enviroment: No Family/Social History - Physician Review Nursing Documentation Reviewed: Yes Family/Social History: Unknown Family HX Smoking Status: Never Smoked Hx Alcohol Use: No Hx Substance Use: No Hx Substance Use Treatment: No Allergies/Home Meds Allergies/Adverse Reactions: Allergies No Known Allergies Allergy (Verified 12/03/17 16:17) Home Medications: Home Meds Medication Instructions Recorded Confirmed Glipizide 10 mg PO DAILY 05/16/14 12/03/17 Levothyroxine Sodium 75 mcg PO DAILY 05/16/14 12/03/17 Medat-8-Lfwf Ethyl Esters [OMEGA 3] 2 tab PO BID 05/16/14 12/03/17 Esomeprazole Magnesium [Nexium] 40 mg PO DAILY 05/17/14 12/03/17 Atenolol [Tenormin] 50 mg PO DAILY 07/31/15 12/03/17 Colesevelam HCl [Welchol] 625 mg PO TID 07/31/15 12/03/17 Furosemide [Lasix] 20 mg PO DAILY 11/04/17 12/03/17 Insulin Glargine, Recombina 30 unit SC AMHS 11/14/17 12/03/17 [Lantus] Review of Systems - Physician Review All systems were reviewed & negative as marked: Yes - Review of Systems Constitutional: Fatigue. absent: Fevers Respiratory: SOB. absent: Cough, Wheezing Cardiovascular: Chest Pain. absent: Palpitations, Syncope Gastrointestinal: absent: Abdominal Pain, Nausea, Vomiting Neurological: Other (insomnia). absent: Headache, Dizziness, Focal Weakness Physical Exam Temperature: Afebrile Blood Pressure: Normal Pulse: Regular Respiratory Rate: Normal Appearance: Positive for: Well-Appearing, Non-Toxic, Comfortable, Uncomfortable, Other (obese) Pain Distress: None Mental Status: Positive for: Alert and Oriented X 3 - Systems Exam Head: Present: Atraumatic, Normocephalic Pupils: Present: PERRL Extroacular Muscles: Present: EOMI Conjunctiva: Present: Normal Mouth: Present: Moist Mucous Membranes Pharnyx: No: ERYTHEMA, EXUDATE, TONSILS ENLARGED Neck: Present: Normal Range of Motion Respiratory/Chest: Present: Clear to Auscultation, Good Air Exchange, Decreased Breath Sounds, Tender to Palpation (chest is tender to palpati). No: Respiratory Distress, Accessory Muscle Use Cardiovascular: Present: Regular Rate and Rhythm, Normal S1, S2. No: Murmurs Abdomen: No: Tenderness, Distention, Peritoneal Signs, Rebound, Guarding Back: Present: Normal Inspection Upper Extremity: Present: Normal Inspection. No: Cyanosis, Edema Lower Extremity: Present: Normal Inspection, Other (bilateral lower extremity chronic venous stasis changes). No: Edema Neurological: Present: GCS=15, CN II-XII Intact, Speech Normal, Motor Func Grossly Intact Skin: Present: Warm, Dry, Normal Color. No: Rashes Psychiatric: Present: Alert, Oriented x 3, Normal Insight, Normal Concentration Medical Decision Making ED Course and Treatment: 12/19/17 18:12 EKG shows sinus tachycardia rate approximately 110 with unifocal PVCs poor R waves and Q waves inferiorly with no acute ST or T-wave changes. 12/19/17 19:14 Discussed with the medical equipment technician and Dr.G Webb the house physician who will admit to hospitalist service. - RAD Interpretation Radiology Orders: 12/19/17 18:05 CHEST PORTABLE [RAD] Stat X-ray chest one view as read by the radiologist shows no infiltrate effusion or cardiomegaly. Hospice Care Consultant: Radiologist - Medication Orders Current Medication Orders: Nitroglycerin (Nitro-Bid 2% Oint) 1 ea TOP STAT STA Stop: 12/19/17 18:07 Disposition/Present on Arrival - Present on Arrival Any Indicators Present on Arrival: No History of DVT/PE: No History of Uncontrolled Diabetes: Yes Urinary Catheter: No History of Decub. Ulcer: No History Surgical Site Infection Following: None - Disposition Have Diagnosis and Disposition been Completed?: Yes Diagnosis: Chest pain, CAD (coronary artery disease), Morbid obesity, Diabetes mellitus, Hyperglycemia, Dyspnea Disposition: HOSPITALIZED Disposition Time: 19:14 Patient Plan: Observation, Telemetry Condition: FAIR Discharge Instructions (ExitCare): Chest Pain (ED) Referrals: Obed Santos MD [Non-Staff] - Follow up with primary Forms: [employer] (Sami)
--- NOTE | 2017-12-19 18:25 | RAD ---
HISTORY: sob COMPARISON: Chest x-ray performed 11/04/17 TECHNIQUE: Chest, one view. FINDINGS: Examination limited by habitus. LUNGS: No focal consolidation. Please note that chest x-ray has limited sensitivity for the detection of pulmonary masses. PLEURA: No significant pleural effusion identified. No definite pneumothorax . CARDIOVASCULAR: Heart size appears within normal limits. OSSEOUS STRUCTURES: No acute osseous abnormality identified. VISUALIZED UPPER ABDOMEN: Unremarkable. OTHER FINDINGS: None. IMPRESSION: No focal consolidation, significant pleural effusion, or definite pneumothorax identified.
[2017-12-19 18:31] LABS: BASO # 0.03 K/mm3 (0.0-2.0); BASO % 0.6 % (0.0-3.0); EOS # 0.2 (0.0-0.7); EOS % 3.1 % (1.5-5.0); GRAN # 2.9 (1.4-6.5); GRAN % 56.6 % (50.0-68.0); HEMOGLOBIN 11.9 g/dL (14.0-18.0); LYMPH # 1.4 (1.2-3.4); LYMPH % 26.4 % (22.0-35.0); MEAN CELL VOLUME 89.7 fl (80.0-105.0); MEAN CORPUSCULAR HEMOGLOBIN 31.6 pg (25.0-35.0); MEAN CORPUSCULAR HGB CONC 35.2 g/dl (31.0-37.0); MEAN PLATELET VOLUME 11.1 fl (7.0-11.0); MONO # 0.7 (0.1-0.6); MONO % 13.3 % (1.0-6.0); RBC 3.77 10^6/uL (3.5-6.1); RED CELL DISTRIBUTION WIDTH 14.4 % (11.5-14.5); WHITE BLOOD COUNT 5.1 10^3/ul (4.5-11.0)
[2017-12-19 18:39] LABS: INR 1.28; PARTIAL THROMBOPLASTIN TIME 28.5 Seconds (25.1-36.5); PROTHROMBIN TIME 14.7 SECONDS (9.4-12.5)
[2017-12-19 18:47] LABS: ALB/GLOB RATIO 0.8 (1.1-1.8); ALBUMIN 3.2 g/dL (3.0-4.8); ALT/SGPT 47 U/L (7-56); AST/SGOT 73 U/L (17-59); BLOOD UREA NITROGEN 6 mg/dL (7-21); CALCIUM 8.2 mg/dL (8.4-10.5); GFR NON-AFRICAN AMERICAN > 60
[2017-12-19] MEDS ORDERED: Insulin Regular 1 UNITS/0.01 ML ML IV STA (18:48)
[2017-12-19 18:52] LABS: B-TYPE NATRIURETIC PEPTIDE 134 pg/mL (0-450); TROPONIN I 0.02 ng/mL
--- NOTE | 2017-12-19 19:40 | CP.PCM.HP ---
<Srinivasa Hodge - Last Filed: 12/19/17 20:14> History of Present Illness - History of Present Illness History of Present Illness: Srinivasa Hodge PGY-1 Medicine H&P for Dr. Webb CC: heart pain with head pain HPI: Gianna Wyatt, 57M, with PMHx CAD s/p 11 stents (last stents on 05/09/17, multiple), T2DM, CHF, HTN, HLD, and hypothyroid c/o chest pain. Patient states the pain is located in the center of his chest radiates diffusely through upper chest and into head. Patient states this pain has been constant in nature described as sharp ongoing for a month. Patient reports he did not want to come to hospital sooner because of he had an episode of confusion which required him to go to [facility] [place] it was noted that his ammonia level was high. Patient received and EGD and Colonoscopy showing medium hiatal hernia, non-bleeding gastric ulcers with no stigmata of bleeding, erythematocus mucosa in stomach/duodenum and non-bleeding external and internal hemorrhoids. Colonic spasm. Bx descending colon is benign respectively. Patient states he took all of his home medications which did not offer relief however in prior notes patient seems to be noncompliant to medications. On route patient received nitroglycerin sublignually and nitropaste which has relieved his chest pain. Patient states he has shortness of breath on exertion but denies nausea/vomiting, constipation or diarrhea, lightheadedness, diaphoresis, dizziness, pain in arm or jaw, vision changes. 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 Santos Neuro: Dr. Kan Endocrine: Pancho Cardio: Dr. Russo GI doctor: Dr Oswald Gonzalez Medical proxy: Edmundo Spann [phone] (per pt verbally, no signed doc) No advanced directive Full code Present on Admission - Present on Admission Any Indicators Present on Admission: No Review of Systems - Review of Systems Review of Systems: 12 point ROS obtained and noted in HPI Past Patient History - Infectious Disease Hx of Infectious Diseases: None - Tetanus Immunizations Tetanus Immunization: Unknown - Past Medical History & Family History Past Medical History?: Yes - Past Social History Smoking Status: Never Smoked - PULMONARY Hx Asthma: Yes - NEUROLOGICAL Hx Neurological Disorder: Yes Other/Comment: "Early dementia, ,memory loss" - HEENT Hx HEENT Problems: No - RENAL Hx Chronic Kidney Disease: No - ENDOCRINE/METABOLIC Hx Hypothyroidism: Yes - HEMATOLOGICAL/ONCOLOGICAL Hx Blood Disorders: No - INTEGUMENTARY Hx Dermatological Problems: No - MUSCULOSKELETAL/RHEUMATOLOGICAL Hx Falls: No - GASTROINTESTINAL Hx Gastrointestinal Disorders: No - GENITOURINARY/GYNECOLOGICAL Hx Genitourinary Disorders: No - PSYCHIATRIC Hx Substance Use: No - SURGICAL HISTORY Hx Appendectomy: Yes Hx Coronary Stent: Yes - ANESTHESIA Hx Anesthesia: Yes Hx Anesthesia Reactions: No Hx Malignant Hyperthermia: No Meds Allergies/Adverse Reactions: Allergies Allergy/AdvReac Type Severity Reaction Status Date / Time No Known Allergies Allergy Verified 12/03/17 16:17 Physical Exam - Constitutional Appears: Non-toxic, No Acute Distress - Head Exam Head Exam: NORMAL INSPECTION, NORMOCEPHALIC - Eye Exam Eye Exam: EOMI, Normal appearance. absent: Nystagmus, Scleral icterus - ENT Exam ENT Exam: Mucous Membranes Moist - Respiratory Exam Respiratory Exam: Clear to Auscultation Bilateral, NORMAL BREATHING PATTERN. absent: Rales, Rhonchi, Wheezes - Cardiovascular Exam Cardiovascular Exam: Tachycardia, REGULAR RHYTHM, +S1, +S2 - GI/Abdominal Exam GI & Abdominal Exam: Normal Bowel Sounds, Soft - Extremities Exam Extremities exam: Positive for: normal inspection. Negative for: calf tenderness, pedal edema - Neurological Exam Neurological exam: Alert, Oriented x3 - Psychiatric Exam Psychiatric exam: Normal Affect, Normal Mood - Skin Skin Exam: Intact, Normal Color Results - Vital Signs Recent Vital Signs: Last Vital Signs Temp 98.5 F 12/19/17 18:08 Pulse 102 H 12/19/17 18:25 Resp 18 12/19/17 18:25 BP 135/76 12/19/17 18:25 Pulse Ox 98 12/19/17 18:25 - Labs Result Diagrams: 12/19/17 18:26 12/19/17 18:26 Labs: Laboratory Results - last 24 hr 12/19/17 12/19/17 12/19/17 18:26 18:26 18:26 WBC 5.1 RBC 3.77 Hgb 11.9 L Hct 33.8 L MCV 89.7 MCH 31.6 MCHC 35.2 RDW 14.4 Plt Count 105 L MPV 11.1 H Gran % 56.6 Lymph % (Auto) 26.4 [place] % (Auto) 13.3 H Eos % (Auto) 3.1 Baso % (Auto) 0.6 Gran # 2.90 Lymph # (Auto) 1.4 [place] # (Auto) 0.7 H Eos # (Auto) 0.2 Baso # (Auto) 0.03 PT 14.7 H INR 1.28 APTT 28.5 Sodium 134 Potassium 3.9 Chloride 104 Carbon Dioxide 23 Anion Gap 11 BUN 6 L Creatinine 0.6 L Est GFR ( Amer) > 60 Est GFR (Non-Af Amer) > 60 Random Glucose 466 H* D Calcium 8.2 L Magnesium 1.8 Total Bilirubin 1.3 AST 73 H ALT 47 Alkaline Phosphatase 123 Ammonia Lactate Dehydrogenase 741 H Total Creatine Kinase 102 Troponin I 0.02 D NT-Pro-B Natriuret Pep 134 Total Protein 7.2 Albumin 3.2 Globulin 4.1 Albumin/Globulin Ratio 0.8 L 12/19/17 18:26 WBC RBC Hgb Hct MCV MCH MCHC RDW Plt Count MPV Gran % Lymph % (Auto) [place] % (Auto) Eos % (Auto) Baso % (Auto) Gran # Lymph # (Auto) [place] # (Auto) Eos # (Auto) Baso # (Auto) PT INR APTT Sodium Potassium Chloride Carbon Dioxide Anion Gap BUN Creatinine Est GFR ( Amer) Est GFR (Non-Af Amer) Random Glucose Calcium Magnesium Total Bilirubin AST ALT Alkaline Phosphatase Ammonia 62 H Lactate Dehydrogenase Total Creatine Kinase Troponin I NT-Pro-B Natriuret Pep Total Protein Albumin Globulin Albumin/Globulin Ratio Assessment & Plan - Assessment and Plan (Free Text) Assessment: Gianna Wyatt, 57M, with PMHx CAD s/p 11 stents (last stents on 05/09/17, multiple), T2DM, CHF, HTN, HLD, and hypothyroid c/o chest pain. Patient states the pain is located in the center of his chest radiates diffusely through upper chest and into head. Plan: Chest Pain w/ history of stents r/o ACS Cardio Consult: Dr. Russo- recommendations appreciated Trop 0.02; Trop x2 q6h Echo pending Nitropaste on chest; Nitrogylcerin was adminstered in route Nitroglycerin 0.4mg PRN ASA 81 po; Plavix 75 po T2DM NS @ 75 ml ISS low dose Detemir 50 units AMHS Glipzide 10mg po AMHS A1C pending CHF Lasix 40mg po daily HTN Atenolol 50mg po daily Lasix 40mg po daily HLD Lincoln 3 500mg po bid Lipid panel pending Hyperammonemia Repeat Ammonia level in AM Patient not confused Hypothyroid Synthroid 50mcg po daily Medication noncompliance Patient educated on importance of taking medications PPx: DVT ppx: SCDs GI ppx: Protonix 40mg HS <Calvin Webb N - Last Filed: 12/21/17 00:09> Results - Vital Signs Recent Vital Signs: Last Vital Signs Temp 98.3 F 12/20/17 23:22 Pulse 86 12/20/17 23:22 Resp 18 12/20/17 23:22 BP 146/70 12/20/17 23:22 Pulse Ox 96 12/20/17 23:22 - Labs Result Diagrams: 12/20/17 06:30 12/20/17 06:30 Labs: Laboratory Results - last 24 hr 12/19/17 12/20/17 12/20/17 21:58 00:40 02:04 WBC RBC Hgb Hct MCV MCH MCHC RDW Plt Count MPV Gran % Lymph % (Auto) [place] % (Auto) Eos % (Auto) Baso % (Auto) Gran # Lymph # (Auto) [place] # (Auto) Eos # (Auto) Baso # (Auto) APTT Sodium Potassium Chloride Carbon Dioxide Anion Gap BUN Creatinine Est GFR ( Amer) Est GFR (Non-Af Amer) POC Glucose (mg/dL) 359 H 211 H Random Glucose Calcium Total Bilirubin AST ALT Alkaline Phosphatase Ammonia Troponin I 0.57 H* D Total Protein Albumin Globulin Albumin/Globulin Ratio Triglycerides Cholesterol LDL Cholesterol Direct HDL Cholesterol 12/20/17 12/20/17 12/20/17 06:30 06:30 06:30 WBC 5.3 RBC 3.59 Hgb 11.2 L Hct 32.2 L MCV 89.7 MCH 31.2 MCHC 34.8 RDW 14.4 Plt Count 98 L MPV 11.4 H Gran % 51.9 Lymph % (Auto) 30.1 [place] % (Auto) 13.3 H Eos % (Auto) 4.3 Baso % (Auto) 0.4 Gran # 2.76 Lymph # (Auto) 1.6 [place] # (Auto) 0.7 H Eos # (Auto) 0.2 Baso # (Auto) 0.02 APTT Sodium 140 Potassium 3.3 L Chloride 111 H Carbon Dioxide 25 Anion Gap 8 L BUN 6 L Creatinine 0.5 L Est GFR ( Amer) > 60 Est GFR (Non-Af Amer) > 60 POC Glucose (mg/dL) Random Glucose 106 Calcium 8.0 L Total Bilirubin 1.1 AST 71 H ALT 38 Alkaline Phosphatase 108 Ammonia 58 H Troponin I 0.83 H* D Total Protein 6.6 Albumin 2.8 L Globulin 3.8 Albumin/Globulin Ratio 0.8 L Triglycerides Cholesterol LDL Cholesterol Direct HDL Cholesterol 12/20/17 12/20/17 12/20/17 08:12 09:30 09:44 WBC RBC Hgb Hct MCV MCH MCHC RDW Plt Count MPV Gran % Lymph % (Auto) [place] % (Auto) Eos % (Auto) Baso % (Auto) Gran # Lymph # (Auto) [place] # (Auto) Eos # (Auto) Baso # (Auto) APTT 47.9 H Sodium Potassium Chloride Carbon Dioxide Anion Gap BUN Creatinine Est GFR ( Amer) Est GFR (Non-Af Amer) POC Glucose (mg/dL) 63 L 129 H Random Glucose Calcium Total Bilirubin AST ALT Alkaline Phosphatase Ammonia Troponin I Total Protein Albumin Globulin Albumin/Globulin Ratio Triglycerides Cholesterol LDL Cholesterol Direct HDL Cholesterol 12/20/17 12/20/17 12/20/17 11:52 16:40 17:06 WBC RBC Hgb Hct MCV MCH MCHC RDW Plt Count MPV Gran % Lymph % (Auto) [place] % (Auto) Eos % (Auto) Baso % (Auto) Gran # Lymph # (Auto) [place] # (Auto) Eos # (Auto) Baso # (Auto) APTT 59.7 H Sodium Potassium Chloride Carbon Dioxide Anion Gap BUN Creatinine Est GFR ( Amer) Est GFR (Non-Af Amer) POC Glucose (mg/dL) 85 Random Glucose Calcium Total Bilirubin AST ALT Alkaline Phosphatase Ammonia Troponin I Total Protein Albumin Globulin Albumin/Globulin Ratio Triglycerides 93 Cholesterol 168 LDL Cholesterol Direct 98 HDL Cholesterol 38 12/20/17 12/20/17 12/20/17 17:24 21:28 22:38 WBC RBC Hgb Hct MCV MCH MCHC RDW Plt Count MPV Gran % Lymph % (Auto) [place] % (Auto) Eos % (Auto) Baso % (Auto) Gran # Lymph # (Auto) [place] # (Auto) Eos # (Auto) Baso # (Auto) APTT 67.9 H Sodium Potassium Chloride Carbon Dioxide Anion Gap BUN Creatinine Est GFR ( Amer) Est GFR (Non-Af Amer) POC Glucose (mg/dL) 243 H 286 H Random Glucose Calcium Total Bilirubin AST ALT Alkaline Phosphatase Ammonia Troponin I Total Protein Albumin Globulin Albumin/Globulin Ratio Triglycerides Cholesterol LDL Cholesterol Direct HDL Cholesterol Addendum Addendum: 12/21/17 00:08 pt,s troponin increased to 0.53. no cp , no sob .will start heparin.will f/u with cardiology.
[2017-12-19] MEDS ORDERED: Dextrose 50% SYRINGE Inj (50 ml) IV PRN (20:38)
[2017-12-19] MEDS: Sodium Chloride 0.9% 1,000 ML IV SCH (20:59)
[2017-12-19] MEDS: Insulin Reg-LOW-Coverage SC SCH (22:30)
[2017-12-19] MEDS: Insulin Detemir 100 units/ml Vial (Levemir) SC SCH (22:30)
[2017-12-20 01:25] VITALS: BMI 38.2
--- NOTE | 2017-12-20 02:29 | CP.PCM.PCO ---
Addendum Addendum: Night float progress note S: Resident paged for elevated repeat troponin. Pt seen and examined immediately. NAD, resting comfortably in bed with no acute complaints O: VSS, Gen: NAD, CV: RRR, S1 & S2 Chest: CTA b/l A/P: EKG ordered. Reviewed, no changes from previous EKG. Heparin drip started. Pt place NPO for possible cath in am
[2017-12-20] MEDS: Heparin25000 units/250ml 1/2NS 25,000 UNITS/250 ML BAG IV SCH ×4 (02:46→20:28)
[2017-12-20] MEDS: Levothyroxine 50 MCG TAB PO SCH (05:12)
[2017-12-20 07:31] LABS: BASO # 0.02 K/mm3 (0.0-2.0); BASO % 0.4 % (0.0-3.0); EOS # 0.2 (0.0-0.7); EOS % 4.3 % (1.5-5.0); GRAN # 2.76 (1.4-6.5); GRAN % 51.9 % (50.0-68.0); HEMOGLOBIN 11.2 g/dL (14.0-18.0); LYMPH # 1.6 (1.2-3.4); LYMPH % 30.1 % (22.0-35.0); MEAN CELL VOLUME 89.7 fl (80.0-105.0); MEAN CORPUSCULAR HEMOGLOBIN 31.2 pg (25.0-35.0); MEAN CORPUSCULAR HGB CONC 34.8 g/dl (31.0-37.0); MEAN PLATELET VOLUME 11.4 fl (7.0-11.0); MONO # 0.7 (0.1-0.6); MONO % 13.3 % (1.0-6.0); RBC 3.59 10^6/uL (3.5-6.1); RED CELL DISTRIBUTION WIDTH 14.4 % (11.5-14.5); WHITE BLOOD COUNT 5.3 10^3/ul (4.5-11.0)
[2017-12-20] MEDS: Insulin Reg-LOW-Coverage SC SCH ×4 (08:15→21:34)
[2017-12-20 08:21] LABS: TROPONIN I 0.83 ng/mL
[2017-12-20 08:43] LABS: ALB/GLOB RATIO 0.8 (1.1-1.8); ALBUMIN 2.8 g/dL (3.0-4.8); ALT/SGPT 38 U/L (7-56); AST/SGOT 71 U/L (17-59); BLOOD UREA NITROGEN 6 mg/dL (7-21); GFR NON-AFRICAN AMERICAN > 60
--- NOTE | 2017-12-20 09:20 | CARD ---
APPROVED REPORT Date of service: 12/20/2017 EKG Measurement Heart [id number] <Conclusion> Sinus rhythm with 3 premature ventricular complexes PRWP Possible IMI, age unknown STTW changes c/w ischemia Prolonged QT
--- NOTE | 2017-12-20 09:27 | CARD ---
APPROVED REPORT Date of service: 12/19/2017 EKG Measurement Heart [id number] <Conclusion> Sinus tachycardia with one premature ventricular complexes Minimal voltage criteria for LVH, may be normal variant Septal infarct, age undetermined Inferior infarct, age undetermined STTW changes c/w ischemia Prolonged QTc No change
[2017-12-20] MEDS: Omega-3-Acid Ethyl Esters 1 GM Cap PO SCH ×2 (09:40→17:18)
[2017-12-20] MEDS: Insulin Detemir 100 units/ml Vial (Levemir) SC SCH (09:40)
[2017-12-20] MEDS: Sodium Chloride 0.9% 1,000 ML IV SCH ×3 (10:28→23:30)
[2017-12-20] MEDS ORDERED: Potassium Chloride 40 mEq/30 ml LIQ UD PO ONE (14:50)
--- NOTE | 2017-12-20 15:05 | CON ---
DATE: 12/20/2017 REASON FOR CONSULTATION: Chest pain. HISTORY OF PRESENT ILLNESS: The patient is a 57-year-old [place] male, who has a history of longstanding diabetes mellitus, history of coronary artery disease with history of chronic stenting in the past, the most recent one was in 04/2017. At that time, the patient underwent successful PTCA and stent to the mid right coronary artery with drug eluting stent. Underwent PTCA of the diagonal vessel through an LAD stent. At that time, the patient was found to have normal left ventricular systolic function. The patient presents because of chest pain on minimal effort as well as shortness of breath. The patient claims to have been compliant with his medications. SOCIAL HISTORY: Nonsmoker. Nondrinker. MEDICATIONS: Aspirin 81 mg once a day, glipizide 10 mg once a day, intravenous heparin in a therapeutic regimen, Lasix 40 mg p.o. once a day, Plavix 75 mg once a day, Synthroid 50 mcg once a day, atenolol 50 mg once a day. PHYSICAL EXAMINATION: GENERAL: The patient is a middle-aged male, who does not appear to be in any acute distress. VITAL SIGNS: Blood pressure 132/66, heart rate 83, temperature 97.9, respirations 19. HEENT: Normocephalic. CHEST: Bibasilar rhonchi. HEART: S1 and S2 regular and distant. ABDOMEN: Soft. EXTREMITIES: 1+ pitting edema. LABORATORY DATA: Hemoglobin and hematocrit 11.2 and 32.2, white count 5.3, platelet count 98,000. SMA-7: Sodium 140, potassium 3.3, chloride 111, CO2 of 25, glucose of 106, BUN 6, creatinine 0.5. Initial troponin was 0.02, subsequent one is 0.57. PTT 47.9, INR is 1.28. Today's EKG revealed sinus rhythm with frequent PVCs. Old inferior infarct. Recent echo on 11/05/2017 revealed normal ejection fraction, aortic sclerosis, mild aortic stenosis. ASSESSMENT: 1. Chest pain, consider [id number] myocardial infarction. 2. Uncontrolled diabetes mellitus. 3. History of liver cirrhosis. The patient does not recall the reason for it. 4. Hypokalemia. RECOMMENDATIONS: Continue aspirin 81 mg once a day, intravenous heparin in therapeutic regimen. Continue Lipitor at 40 mg once a day, Plavix 75 mg once a day, Synthroid 50 mcg once a day and Tenormin 50 mg daily. The case will be discussed with Dr. Rashad Russo on Friday for possible cardiac catheterization with possibility of intervention. Celestino Wu MD
--- NOTE | 2017-12-20 15:58 | CP.PCM.PN ---
<Prabhjot Villavicencio - Last Filed: 12/20/17 15:53> Subjective - Date & Time of Evaluation Date of Evaluation: 12/20/17 Time of Evaluation: 15:53 - Subjective Subjective: Louis Villavicencio PGY2 IM Resident - Medicine Progress Note Patient seen and examined this AM. Patient denies chest pain, shortness of breath, abdominal pain. Requested to speak with Dr. Russo and refused to participate in interview until he speaks with Dr. Russo. Objective - Vital Signs/Intake and Output Vital Signs (last 24 hours): Temp Pulse Resp BP Pulse Ox 97.9 F 83 19 132/66 100 12/20/17 12:00 12/20/17 12:00 12/20/17 12:00 12/20/17 12:00 12/20/17 06:00 Intake and Output: 12/20/17 12/20/17 06:59 18:59 Intake Total 1035 610 Output Total 400 1200 Balance 635 -590 - Medications Medications: Current Medications Acetaminophen (Tylenol 325mg Tab) 650 mg PO Q6H PRN PRN Reason: Fever >100.4 F Last Admin: 12/20/17 12:14 Dose: 650 mg Aspirin (Aspirin Chewable) 81 mg PO DAILY [facility] Last Admin: 12/20/17 09:40 Dose: Not Given Atenolol (Tenormin) 50 mg PO DAILY [facility] Last Admin: 12/20/17 09:41 Dose: Not Given Atorvastatin Calcium (Lipitor) 40 mg PO DIN [facility] Clopidogrel Bisulfate (Plavix) 75 mg PO DAILY [facility] Last Admin: 12/20/17 09:40 Dose: Not Given Dextrose (Dextrose 50% Inj) 0 ml IV STAT PRN; Protocol PRN Reason: Hypoglycemia Protocol Furosemide (Lasix) 40 mg PO DAILY [facility] Last Admin: 12/20/17 09:40 Dose: Not Given Glipizide (Glucotrol) 10 mg PO AMHS [facility] Last Admin: 12/20/17 09:40 Dose: Not Given Dextrose (Dextrose 5% In Water 1000 Ml) 1,000 mls @ 0 mls/hr IV .Q0M PRN; Protocol PRN Reason: Hypoglycemia Protocol Sodium Chloride (Sodium Chloride 0.9%) 1,000 mls @ 75 mls/hr IV .[id number] [facility] Last Admin: 12/20/17 11:39 Dose: 75 mls/hr Heparin Sodium/Sodium Chloride (Heparin 00415 Units/250ml 1/2 Normal Saline) 25,000 units in 250 mls @ 14.04 mls/hr IV .[id number] [facility]; Protocol Last Admin: 12/20/17 11:27 Dose: 14 units/kg/hr, 16.38 mls/hr Insulin Detemir (Levemir) 50 unit SC [facility] Last Admin: 12/20/17 09:40 Dose: Not Given Insulin Human Regular (Humulin R Low) 0 units SC [facility]; Protocol Last Admin: 12/20/17 12:28 Dose: Not Given Levothyroxine Sodium (Synthroid) 50 mcg PO 0600 [facility] Last Admin: 12/20/17 05:12 Dose: 50 mcg Jmwrr-2-Tcyw Ethyl Esters (Lovaza) 0.5 gm PO BID [facility] Last Admin: 12/20/17 09:40 Dose: Not Given - Labs Labs: 12/20/17 06:30 12/20/17 06:30 PT 14.7 SECONDS (9.4-12.5) H 12/19/17 18:26 INR 1.28 12/19/17 18:26 APTT 47.9 Seconds (25.1-36.5) H 12/20/17 09:30 - Constitutional Appears: No Acute Distress - Head Exam Head Exam: ATRAUMATIC, NORMAL INSPECTION, NORMOCEPHALIC - Eye Exam Eye Exam: EOMI, PERRL - ENT Exam ENT Exam: Mucous Membranes Moist - Neck Exam Neck Exam: Full ROM - Respiratory Exam Respiratory Exam: Clear to Ausculation Bilateral, NORMAL BREATHING PATTERN - Cardiovascular Exam Cardiovascular Exam: REGULAR RHYTHM, +S1, +S2 - GI/Abdominal Exam GI & Abdominal Exam: Soft, Normal Bowel Sounds - Extremities Exam Extremities Exam: Full ROM. absent: Pedal Edema - Neurological Exam Neurological Exam: Alert, Awake, Oriented x3 - Psychiatric Exam Psychiatric exam: Agitated - Skin Skin Exam: Dry, Intact Assessment and Plan - Assessment and Plan (Free Text) Assessment: 57M, with PMHx CAD s/p 11 stents (last stents on 05/09/17, multiple), T2DM, CHF, HTN, HLD, and hypothyroid c/o chest pain. Upon further evaluation patient found to have elevated troponin. Cardiology consulted and placed patient on heparin gtt. Plan: Elevated troponin in setting of CAD - Dr. Russo with cardiology consulted - Heparin gtt - Patient no longer NPO, HHD - Troponin elevated 0.83 - Echocardiogram ordered, pending - ASA 81mg, Plavix 75mg - Nitroglycerin 0.4mg PRN DM2 - ISS low dose - HgA1c 9.4 from 10/2017 - [facility] - HHD as of now - Levemir 50 unit - Glipizide 10mg BID - Continue to monitor CHF - Echo(11/05/17) EF 55%, mild concentric LVH, trace AR, MR trace, RVSP 33mHg - Atenolol 50mg - Lasix 40mg - Cardiology consulted Hx HTN - Chronic - Atenolol 50mg PO Daily - Lasix 40mg PO Daily HLD - Lipid panel. f/u results - Lipitor 40mg Daily Hx of Hypothyroid - Continue home synthroid 50mcg PO Daily GI/DVT ppx - Protonix - Heparin gtt Patient seen, case and plan discussed with Dr. Bro <Ryan Bro - Last Filed: 12/20/17 16:48> Objective - Vital Signs/Intake and Output Vital Signs (last 24 hours): Temp Pulse Resp BP Pulse Ox 97.9 F 83 19 132/66 100 12/20/17 12:00 12/20/17 12:00 12/20/17 12:00 12/20/17 12:00 12/20/17 06:00 Intake and Output: 12/20/17 12/20/17 06:59 18:59 Intake Total 1035 610 Output Total 400 1200 Balance 635 -590 - Medications Medications: Current Medications Acetaminophen (Tylenol 325mg Tab) 650 mg PO Q6H PRN PRN Reason: Fever >100.4 F Last Admin: 12/20/17 12:14 Dose: 650 mg Aspirin (Aspirin Chewable) 81 mg PO DAILY [facility] Last Admin: 12/20/17 09:40 Dose: Not Given Atenolol (Tenormin) 50 mg PO DAILY [facility] Last Admin: 12/20/17 09:41 Dose: Not Given Atorvastatin Calcium (Lipitor) 40 mg PO DIN [facility] Clopidogrel Bisulfate (Plavix) 75 mg PO DAILY [facility] Last Admin: 12/20/17 09:40 Dose: Not Given Dextrose (Dextrose 50% Inj) 0 ml IV STAT PRN; Protocol PRN Reason: Hypoglycemia Protocol Furosemide (Lasix) 40 mg PO DAILY [facility] Last Admin: 12/20/17 09:40 Dose: Not Given Glipizide (Glucotrol) 10 mg PO [facility] Last Admin: 12/20/17 09:40 Dose: Not Given Dextrose (Dextrose 5% In Water 1000 Ml) 1,000 mls @ 0 mls/hr IV .Q0M PRN; Protocol PRN Reason: Hypoglycemia Protocol Sodium Chloride (Sodium Chloride 0.9%) 1,000 mls @ 75 mls/hr IV .[id number] [facility] Last Admin: 12/20/17 11:39 Dose: 75 mls/hr Heparin Sodium/Sodium Chloride (Heparin 95646 Units/250ml 1/2 Normal Saline) 25,000 units in 250 mls @ 14.04 mls/hr IV .[id number] [facility]; Protocol Last Admin: 12/20/17 11:27 Dose: 14 units/kg/hr, 16.38 mls/hr Insulin Detemir (Levemir) 50 unit SC [facility] Last Admin: 12/20/17 09:40 Dose: Not Given Insulin Human Regular (Humulin R Low) 0 units SC [facility]; Protocol Last Admin: 12/20/17 12:28 Dose: Not Given Levothyroxine Sodium (Synthroid) 50 mcg PO 0600 [facility] Last Admin: 12/20/17 05:12 Dose: 50 mcg Dkctt-8-Dndj Ethyl Esters (Lovaza) 0.5 gm PO BID [facility] Last Admin: 12/20/17 09:40 Dose: Not Given - Labs Labs: 12/20/17 06:30 12/20/17 06:30 PT 14.7 SECONDS (9.4-12.5) H 12/19/17 18:26 INR 1.28 12/19/17 18:26 APTT 47.9 Seconds (25.1-36.5) H 12/20/17 09:30 Attending/Attestation - Attestation I have personally seen and examined this patient.: Yes I have fully participated in the care of the patient.: Yes I have reviewed all pertinent clinical information, including history, physical exam and plan: Yes Notes (Text): 12/20/17 16:41 57 year old male with past medical history of CAD s/p stents, diabetes, CHF, dyslipidemia, hypertension and hypothyroidism who presented with chest pain. Initial troponin was negative but repeat troponins increased; consider NSTEMI. Patient is on aspirin, plavix, statin, atenolol and heparin drip. Patient refused to be examined by myself. He also refused interview demanding only to speak with Dr. Russo. Case was discussed with covering right of way buyer, Dr. Wu. Continue with management as above. He is on levemir and glipizide for diabetes. He was hypoglycemic earlier this morning so will hold for now and continue with insulin ss. Will replete and repeat potassium. Ryan Bro MD Hospitalist.
[2017-12-20 17:28] LABS: HDL CHOLESTEROL 38 mg/dL (29-60)
[2017-12-20 17:39] LABS: LDL CHOLESTEROL 98 mg/dL (0-129)
[2017-12-21] MEDS: Levothyroxine 50 MCG TAB PO SCH (05:10)
[2017-12-21 08:06] LABS: BASO # 0.03 K/mm3 (0.0-2.0); BASO % 0.6 % (0.0-3.0); EOS # 0.2 (0.0-0.7); EOS % 3.2 % (1.5-5.0); GRAN # 2.53 (1.4-6.5); GRAN % 47.1 % (50.0-68.0); HEMOGLOBIN 10.9 g/dL (14.0-18.0); LYMPH # 1.9 (1.2-3.4); LYMPH % 35.3 % (22.0-35.0); MEAN CELL VOLUME 90.2 fl (80.0-105.0); MEAN CORPUSCULAR HEMOGLOBIN 29.8 pg (25.0-35.0); MEAN PLATELET VOLUME 11.2 fl (7.0-11.0); MONO # 0.7 (0.1-0.6); MONO % 13.8 % (1.0-6.0); RBC 3.66 10^6/uL (3.5-6.1); RED CELL DISTRIBUTION WIDTH 14.5 % (11.5-14.5); WHITE BLOOD COUNT 5.4 10^3/ul (4.5-11.0)
[2017-12-21] MEDS: Insulin Reg-LOW-Coverage SC SCH ×4 (08:16→21:20)
[2017-12-21 08:24] LABS: ALB/GLOB RATIO 0.7 (1.1-1.8); ALBUMIN 2.8 g/dL (3.0-4.8); ALT/SGPT 38 U/L (7-56); AST/SGOT 68 U/L (17-59); BLOOD UREA NITROGEN 6 mg/dL (7-21); CALCIUM 8.2 mg/dL (8.4-10.5); GFR NON-AFRICAN AMERICAN > 60
--- NOTE | 2017-12-21 10:35 | CP.PCM.PN ---
<Thanh Hermosillo - Last Filed: 12/21/17 15:13> Subjective - Date & Time of Evaluation Date of Evaluation: 12/21/17 Time of Evaluation: 09:35 - Subjective Subjective: Thanh Hermosillo PGY2 IM Progress Note for Dr. Bro Patient was seen and examined at bedside. He was refusing to be seen with the attending, but did comply with my examination. He states that he continues to have intermittent chest pain. Otherwise, he denies n/v/d/c, fevers/chills, numbness/tingling, shortness of breath. The patient was asked regarding his diagnoses from [facility]. He states that he has an appointment on Sunday 12/24 at [facility] for evaluation of his liver issues and elevated ammonia. HE also states that for his H. pylori, he had 1 more day left of his triple therapy. Discussed with Dr. Wu that the patient would be seen by Dr. Russo tomorrow for a possible cath, and agrees with current management. Objective - Vital Signs/Intake and Output Vital Signs (last 24 hours): Temp Pulse Resp BP Pulse Ox 98.1 F 89 20 154/70 H 97 12/21/17 05:13 12/21/17 05:13 12/21/17 05:13 12/21/17 10:08 12/21/17 05:13 Intake and Output: 12/21/17 12/21/17 06:59 18:59 Intake Total 1097 Output Total 1675 Balance -578 - Medications Medications: Current Medications Acetaminophen (Tylenol 325mg Tab) 650 mg PO Q6H PRN PRN Reason: Fever >100.4 F Last Admin: 12/20/17 12:14 Dose: 650 mg Aspirin (Aspirin Chewable) 81 mg PO DAILY [facility] Last Admin: 12/21/17 10:08 Dose: 81 mg Atenolol (Tenormin) 50 mg PO DAILY [facility] Last Admin: 12/21/17 10:08 Dose: 50 mg Atorvastatin Calcium (Lipitor) 40 mg PO DIN [facility] Last Admin: 12/20/17 17:19 Dose: 40 mg Clopidogrel Bisulfate (Plavix) 75 mg PO DAILY [facility] Last Admin: 12/21/17 10:08 Dose: 75 mg Dextrose (Dextrose 50% Inj) 0 ml IV STAT PRN; Protocol PRN Reason: Hypoglycemia Protocol Furosemide (Lasix) 40 mg PO DAILY [facility] Last Admin: 12/21/17 10:08 Dose: 40 mg Glipizide (Glucotrol) 10 mg PO [facility] Last Admin: 12/21/17 10:11 Dose: 10 mg Dextrose (Dextrose 5% In Water 1000 Ml) 1,000 mls @ 0 mls/hr IV .Q0M PRN; Protocol PRN Reason: Hypoglycemia Protocol Sodium Chloride (Sodium Chloride 0.9%) 1,000 mls @ 75 mls/hr IV .[id number] [facility] Last Admin: 12/20/17 23:30 Dose: 75 mls/hr Heparin Sodium/Sodium Chloride (Heparin 94006 Units/250ml 1/2 Normal Saline) 25,000 units in 250 mls @ 14.04 mls/hr IV .[id number] [facility]; Protocol Last Admin: 12/20/17 20:28 Dose: Not Given Insulin Detemir (Levemir) 50 unit SC [facility] Last Admin: 12/20/17 09:40 Dose: Not Given Insulin Human Regular (Humulin R Low) 0 units SC [facility]; Protocol Last Admin: 12/21/17 08:16 Dose: 2 units Levothyroxine Sodium (Synthroid) 50 mcg PO 0600 [facility] Last Admin: 12/21/17 05:10 Dose: 50 mcg Aifti-4-Avez Ethyl Esters (Lovaza) 0.5 gm PO BID [facility] Last Admin: 12/20/17 17:18 Dose: 0.5 gm - Labs Labs: 12/21/17 07:00 12/21/17 07:00 PT 14.7 SECONDS (9.4-12.5) H 12/19/17 18:26 INR 1.28 12/19/17 18:26 APTT 71.3 Seconds (25.1-36.5) H 12/21/17 07:00 - Additional Findings Additional findings: - Constitutional Appears: No Acute Distress - Head Exam Head Exam: ATRAUMATIC, NORMAL INSPECTION, NORMOCEPHALIC - Eye Exam Eye Exam: EOMI, PERRL - ENT Exam ENT Exam: Mucous Membranes Moist - Neck Exam Neck Exam: Full ROM - Respiratory Exam Respiratory Exam: Clear to Ausculation Bilateral, NORMAL BREATHING PATTERN - Cardiovascular Exam Cardiovascular Exam: REGULAR RHYTHM, +S1, +S2 - GI/Abdominal Exam GI & Abdominal Exam: Soft, Normal Bowel Sounds Additional Comments: obese body habitus - Extremities Exam Extremities Exam: Full ROM. absent: Pedal Edema Additional Comments: mild dark discoloration of legs - Neurological Exam Neurological Exam: Alert, Awake, Oriented x3 - Psychiatric Exam Psychiatric exam: Agitated - Skin Skin Exam: Dry, Intact Assessment and Plan - Assessment and Plan (Free Text) Assessment: 57M, with PMHx CAD s/p 11 stents (last stents on 05/09/17, multiple), T2DM, CHF, HTN, HLD, and hypothyroid c/o chest pain. Upon further evaluation patient found to have elevated troponin. Cardiology consulted and placed patient on heparin g tt, ASA/Plavix. Patient is pending diagnostic cath tomorrow with Dr. Russo, per cardio recs. Prior chart check revealed H.pylori positive gastritis and positive anti-smooth muscle antibody with low titers (1:40). Plan: 1. Chest pain, being treated for NSTEMI - Cardio following, plan for possible cath tomorrow Friday 12/22 - Echocardiogram ordered, pending - ASA 81mg, Plavix 75mg - cont heparin gtt - EKG reviewed, Sinus @ 92bpm, w/ 3 PVC's, possible IMI (age unknown), STTW c/w ischemia, prolonged QT (521) 2. DM2 - ISS low dose - holding Levemir due to hypoglycemic episode - Accuchecks ACHS - HHD (low fat diet), will keep NPO past midnight except for meds - Glipizide 10mg BID, will hold in AM - Continue to monitor 3. CHF - Echo(11/05/17) EF 55%, mild concentric LVH, trace AR, MR trace, RVSP 33mHg - Atenolol 50mg - Lasix 40mg - Cardiology consulted 4. Hx H. pylori + from non-bleeding gastric ulcer (dx 12/04/17) - cont PTX and carafate - should follow-up as outpatient when discharged 5. Hyperammonia - restart Lactulose - cont to monitor for changes in mental status - prior admission labs/chart were reviewed - patient has appointment on Friday at [facility] 6. Hx HTN - Chronic - Atenolol 50mg PO Daily - Lasix 40mg PO Daily 7. HLD - Lipid panel. f/u results - Lipitor 40mg Daily 8. Hx of Hypothyroid - Continue home synthroid 50mcg PO Daily 9. GI/DVT ppx - Protonix - Heparin gtt Patient was examined and discussed with attending, Dr. Adali Hermosillo PGY2 <Ryan Bro - Last Filed: 12/21/17 15:58> Objective - Vital Signs/Intake and Output Vital Signs (last 24 hours): Temp Pulse Resp BP Pulse Ox 98.1 F 90 20 154/70 H 97 12/21/17 05:13 12/21/17 10:00 12/21/17 05:13 12/21/17 10:08 12/21/17 05:13 Intake and Output: 12/21/17 12/21/17 06:59 18:59 Intake Total 1097 250 Output Total 1675 Balance -578 250 - Medications Medications: Current Medications Acetaminophen (Tylenol 325mg Tab) 650 mg PO Q6H PRN PRN Reason: Fever >100.4 F Last Admin: 12/20/17 12:14 Dose: 650 mg Aspirin (Aspirin Chewable) 81 mg PO DAILY [facility] Last Admin: 12/21/17 10:08 Dose: 81 mg Atenolol (Tenormin) 50 mg PO DAILY [facility] Last Admin: 12/21/17 10:08 Dose: 50 mg Atorvastatin Calcium (Lipitor) 40 mg PO DIN [facility] Last Admin: 12/20/17 17:19 Dose: 40 mg Clopidogrel Bisulfate (Plavix) 75 mg PO DAILY [facility] Last Admin: 12/21/17 10:08 Dose: 75 mg Dextrose (Dextrose 50% Inj) 0 ml IV STAT PRN; Protocol PRN Reason: Hypoglycemia Protocol Furosemide (Lasix) 40 mg PO DAILY [facility] Last Admin: 12/21/17 10:08 Dose: 40 mg Glipizide (Glucotrol) 10 mg PO AMHS [facility] Last Admin: 12/21/17 10:11 Dose: 10 mg Dextrose (Dextrose 5% In Water 1000 Ml) 1,000 mls @ 0 mls/hr IV .Q0M PRN; Protocol PRN Reason: Hypoglycemia Protocol Sodium Chloride (Sodium Chloride 0.9%) 1,000 mls @ 75 mls/hr IV .[id number] [facility] Last Admin: 12/20/17 23:30 Dose: 75 mls/hr Heparin Sodium/Sodium Chloride (Heparin 44764 Units/250ml 1/2 Normal Saline) 25,000 units in 250 mls @ 14.04 mls/hr IV .[id number] [facility]; Protocol Last Admin: 12/21/17 10:54 Dose: 14 units/kg/hr, 16.38 mls/hr Insulin Detemir (Levemir) 50 unit SC [facility] Last Admin: 12/20/17 09:40 Dose: Not Given Insulin Human Regular (Humulin R Low) [address] [facility]; Protocol Last Admin: 12/21/17 12:29 Dose: 3 units Lactulose (Enulose) 30 gm PO TID [facility] Levothyroxine Sodium (Synthroid) 75 mcg PO 0600 [facility] Fykxp-9-Gtti Ethyl Esters (Lovaza) 0.5 gm PO BID [facility] Last Admin: 12/21/17 15:46 Dose: Not Given Pantoprazole Sodium (Protonix Ec Tab) 40 mg PO 0600 [facility] Last Admin: 12/21/17 12:28 Dose: 40 mg Sucralfate (Carafate Tab) 1 gm PO 0630,1130,1630,2200 [facility] - Labs Labs: 12/21/17 07:00 12/21/17 07:00 PT 14.7 SECONDS (9.4-12.5) H 12/19/17 18:26 INR 1.28 12/19/17 18:26 APTT 71.3 Seconds (25.1-36.5) H 12/21/17 07:00 Attending/Attestation - Attestation I have reviewed all pertinent clinical information, including history, physical exam and plan: Yes Notes (Text): 12/21/17 15:52 57 year old male with past medical history of CAD s/p stents, diabetes, CHF, dyslipidemia, hypertension and hypothyroidism who presented with chest pain. Initial troponin was negative but repeat troponins increased; possible NSTEMI. Patient is on aspirin, plavix, statin, atenolol and heparin drip. Cardiology is following; will keep NPO after midnight for possible cardiac cath in AM. Patient again today refused examination or interview by myself. He wishes only to speak with [place] speaking staff (Dr. Wu and Dr. Box) or Dr. Russo. His levemir was held yesterday due to hypoglycemia. He is on glipizide and insulin ss. Can hold AM dose since he will be NPO for cardiac cath. Ryan Bro MD Hospitalist.
[2017-12-21] MEDS: Heparin25000 units/250ml 1/2NS 25,000 UNITS/250 ML BAG IV SCH ×2 (10:54→19:33)
[2017-12-21] MEDS: Pantoprazole 40 mg EC Tab PO SCH (12:28)
[2017-12-21] MEDS ORDERED: Levothyroxine 75 MCG TAB PO SCH (15:40)
[2017-12-21] MEDS: Omega-3-Acid Ethyl Esters 1 GM Cap PO SCH ×2 (15:46→17:49)
--- NOTE | 2017-12-21 16:38 | PN ---
DATE: 12/21/2017 SUBJECTIVE: The patient is experiencing retrosternal chest discomfort. PHYSICAL EXAMINATION: VITAL SIGNS: Blood pressure 154/70, heart rate 89, temperature 98.1, respiration 20. HEENT: Normocephalic. CHEST: Bilateral rhonchi. HEART: S1 and S2 regular. EXTREMITIES: 1+ pitting edema. LABORATORY DATA: Today's hemoglobin and hematocrit 10.9 and 33, white count 5.4, platelet count 96,000. Today's PTT is therapeutic at 71.3. SMA-7: Sodium 137, potassium 4, chloride 106, CO2 27, glucose 114, BUN 6, creatinine 0.6. ASSESSMENT: 1. Chest pain, consider [id number] myocardial infarction. 2. Uncontrolled diabetes mellitus. 3. Liver thrombosis. 5. Mild thrombocytopenia. CONDITIONS: Case was discussed with Dr. Bro. The patient will be maintained on therapeutic intravenous heparin. Continue aspirin 81 mg once a day, Lipitor 40 mg once a day, Plavix 75 mg once a day, Tenormin 50 mg daily, Synthroid 50 mcg daily. The patient will be kept n.p.o. for possible cardiac catheterization tomorrow. Celestino Wu MD
[2017-12-21] MEDS: Sodium Chloride 0.9% 1,000 ML IV SCH (19:34)
[2017-12-22] MEDS: Heparin25000 units/250ml 1/2NS 25,000 UNITS/250 ML BAG IV SCH ×2 (03:05→08:05)
[2017-12-22] MEDS: Pantoprazole 40 mg EC Tab PO SCH (05:44)
[2017-12-22 06:26] VITALS: O2SAT 98
[2017-12-22 07:04] LABS: ALB/GLOB RATIO 0.7 (1.1-1.8); ALBUMIN 2.9 g/dL (3.0-4.8); ALT/SGPT 41 U/L (7-56); AST/SGOT 59 U/L (17-59); BLOOD UREA NITROGEN 7 mg/dL (7-21); CALCIUM 8.2 mg/dL (8.4-10.5); GFR NON-AFRICAN AMERICAN > 60
[2017-12-22 07:10] LABS: HEMOGLOBIN 11.5 g/dL (14.0-18.0); MEAN CELL VOLUME 90.2 fl (80.0-105.0); MEAN CORPUSCULAR HEMOGLOBIN 30.6 pg (25.0-35.0); MEAN CORPUSCULAR HGB CONC 33.9 g/dl (31.0-37.0); MEAN PLATELET VOLUME 11.3 fl (7.0-11.0); RBC 3.76 10^6/uL (3.5-6.1); RED CELL DISTRIBUTION WIDTH 14.5 % (11.5-14.5); WHITE BLOOD COUNT 5.5 10^3/ul (4.5-11.0)
[2017-12-22] MEDS: Insulin Reg-LOW-Coverage SC SCH ×3 (08:10→19:11)
[2017-12-22] MEDS: Omega-3-Acid Ethyl Esters 1 GM Cap PO SCH ×2 (10:00→19:10)
[2017-12-22] MEDS ORDERED: Lidocaine 2% PF (10 ml) Amp ONE (10:36)
[2017-12-22] MEDS ORDERED: Iodixanol 320 MG/ML 200 ML BOTTLE IV ONE (10:37)
[2017-12-22] MEDS ORDERED: Iodixanol 320 MG/ML 100 ML BOTTLE IV ONE (10:37)
[2017-12-22] MEDS ORDERED: Midazolam 2 MG/2 ML VIAL ONE ×2 (10:37→11:03)
[2017-12-22] MEDS ORDERED: Sodium Chloride 0.9% 1,000 ML IV SCH (11:30)
--- NOTE | 2017-12-22 12:10 | CARDCATH ---
PROCEDURE DATE: 12/22/2017 HISTORY: The patient is a 57-year-old male with history of multivessel PTCA and stent in the past as well as diabetes mellitus, hypertension and hypercholesterolemia as well as a former smoker who presents with chest pain. He was found to have mildly elevated troponins consistent with a non-STEMI. Because of this, a cardiac catheterization was recommended. In addition, the patient is consistently noncompliant, remains overweight, refuses exercise and has not tried to change his diet. Instead, he constantly ask for coronary artery bypass surgery. PROCEDURE: Left heart catheterization with coronary arteriography and left ventriculogram. The right femoral artery was cannulated with 6-Micronesian sheath. There were no complications. I performed moderate sedation which included the presence of an independent trained observer that assisted in monitoring the patient's level of consciousness and physiologic status. After administration of Versed and fentanyl, my intra service time was 15 minutes. The findings on catheterization revealed a left ventricle that contracted normally. Estimated ejection fraction is 50-55%. The LV is mildly dilated. The patient has a right dominant circulation. The RCA revealed diffuse atherosclerosis throughout its tree, but was free of critical lesions. The RCA revealed a patent stent. Left main artery revealed intimal irregularities without significant stenoses. The LAD revealed diffuse atherosclerosis with patent stents in the proximal portion of the midportion. At the takeoff of the second diagonal vessel, there was a 50-60% stenosis at its ostium. The circumflex artery and obtuse marginal branches revealed diffuse atherosclerosis with a patent stent in the proximal portion. Angio-Seal was used to close the femoral artery site. The patient tolerated the procedure well. In summary, the procedure revealed diffuse atherosclerosis throughout the coronary tree with patent stents in all three vessels. There is 60% stenosis in the diagonal vessel which was unchanged from his previous. LV function is dilated, but LV systolic ejection fraction is normal. Given these findings, the patient's treatment will be continued medical therapy. The addition of Imdur is reasonable We will continue his aspirin and clopidogrel. I discussed with him again the need for cardiac risk reduction program. Rashad Russo MD
[2017-12-22 15:57] VITALS: RESP 18
--- NOTE | 2017-12-22 17:49 | CP.PCM.DIS ---
<Srinivasa Hodge - Last Filed: 12/22/17 17:43> Provider - Provider Date of Admission: 12/20/17 13:37 Attending physician: Ryan Bro MD Primary care physician: Romelia Santos MD Time Spent in preparation of Discharge (in minutes): 45 Hospital Course - Lab Results Lab Results: Most Recent Lab Values WBC 5.5 10^3/ul (4.5-11.0) 12/22/17 05:30 RBC 3.76 10^6/uL (3.5-6.1) 12/22/17 05:30 Hgb 11.5 g/dL (14.0-18.0) L 12/22/17 05:30 Hct 33.9 % (42.0-52.0) L 12/22/17 05:30 MCV 90.2 fl (80.0-105.0) 12/22/17 05:30 MCH 30.6 pg (25.0-35.0) 12/22/17 05:30 MCHC 33.9 g/dl (31.0-37.0) 12/22/17 05:30 RDW 14.5 % (11.5-14.5) 12/22/17 05:30 Plt Count 106 10^3/uL (120.0-450.0) L 12/22/17 05:30 MPV 11.3 fl (7.0-11.0) H 12/22/17 05:30 Gran % 47.1 % (50.0-68.0) L 12/21/17 07:00 Lymph % (Auto) 35.3 % (22.0-35.0) H 12/21/17 07:00 [place] % (Auto) 13.8 % (1.0-6.0) H 12/21/17 07:00 Eos % (Auto) 3.2 % (1.5-5.0) 12/21/17 07:00 Baso % (Auto) 0.6 % (0.0-3.0) 12/21/17 07:00 Gran # 2.53 (1.4-6.5) 12/21/17 07:00 Lymph # (Auto) 1.9 (1.2-3.4) 12/21/17 07:00 [place] # (Auto) 0.7 (0.1-0.6) H 12/21/17 07:00 Eos # (Auto) 0.2 (0.0-0.7) 12/21/17 07:00 Baso # (Auto) 0.03 K/mm3 (0.0-2.0) 12/21/17 07:00 PT 14.7 SECONDS (9.4-12.5) H 12/19/17 18:26 INR 1.28 12/19/17 18:26 APTT 82.7 Seconds (25.1-36.5) H 12/22/17 05:30 Sodium 136 mmol/L (132-148) 12/22/17 05:30 Potassium 3.8 mmol/L (3.6-5.0) 12/22/17 05:30 Chloride 107 mmol/L (98-107) 12/22/17 05:30 Carbon Dioxide 26 mmol/L (21-33) 12/22/17 05:30 Anion Gap 7 (10-20) L 12/22/17 05:30 BUN 7 mg/dL (7-21) 12/22/17 05:30 Creatinine 0.6 mg/dl (0.8-1.5) L 12/22/17 05:30 Est GFR ( Amer) > 60 12/22/17 05:30 Est GFR (Non-Af Amer) > 60 12/22/17 05:30 POC Glucose (mg/dL) 316 mg/dL (65-110) H 12/22/17 16:23 Random Glucose 293 mg/dL (70-110) H 12/22/17 05:30 Hemoglobin A1c 9.5 % (4.2-6.5) H 12/19/17 18:26 Calcium 8.2 mg/dL (8.4-10.5) L 12/22/17 05:30 Phosphorus 2.9 mg/dL (2.5-4.5) 12/22/17 05:30 Magnesium 1.8 mg/dL (1.7-2.2) 12/22/17 05:30 Total Bilirubin 0.9 mg/dL (0.2-1.3) 12/22/17 05:30 AST 59 U/L (17-59) 12/22/17 05:30 ALT 41 U/L (7-56) 12/22/17 05:30 Alkaline Phosphatase 133 U/L (38-126) H D 12/22/17 05:30 Ammonia 58 umol/L (9-33) H 12/20/17 06:30 Lactate Dehydrogenase 741 U/L (333-699) H 12/19/17 18:26 Total Creatine Kinase 102 U/L (35-230) 12/19/17 18:26 Troponin I 0.83 ng/mL H* D 12/20/17 06:30 NT-Pro-B Natriuret Pep 134 pg/mL (0-450) 12/19/17 18:26 Total Protein 6.8 g/dL (5.8-8.3) 12/22/17 05:30 Albumin 2.9 g/dL (3.0-4.8) L 12/22/17 05:30 Globulin 3.9 gm/dL 12/22/17 05:30 Albumin/Globulin Ratio 0.7 (1.1-1.8) L 12/22/17 05:30 Triglycerides 93 mg/dL (35-160) 12/20/17 17:06 Cholesterol 168 mg/dL (130-200) 12/20/17 17:06 LDL Cholesterol Direct 98 mg/dL (0-129) 12/20/17 17:06 HDL Cholesterol 38 mg/dL (29-60) 12/20/17 17:06 - Hospital Course Hospital Course: Upon admission: Gianna Wyatt, 57M, with PMHx CAD s/p 11 stents (last stents on 05/09/17, multiple), T2DM, CHF, HTN, HLD, and hypothyroid c/o chest pain. Patient states the pain is located in the center of his chest radiates diffusely through upper chest and into head. Patient states this pain has been constant in nature described as sharp ongoing for a month. Patient reports he did not want to come to hospital sooner because of he had an episode of confusion which required him to go to [facility] where it was noted that his ammonia level was high. Patient received and EGD and Colonoscopy showing medium hiatal hernia, non-bleeding gastric ulcers with no stigmata of bleeding, erythematocus mucosa in stomach/duodenum and non-bleeding external and internal hemorrhoids. Colonic spasm. Bx descending colon is benign respectively. Patient states he took all of his home medications which did not offer relief however in prior notes patient seems to be noncompliant to medications. On route patient received nitroglycerin sublignually and nitropaste which has relieved his chest pain. Patient states he has shortness of breath on exertion but denies nausea/vomiting, constipation or diarrhea, lightheadedness, diaphoresis, dizziness, pain in arm or jaw, vision changes. Hospital Course: 53 year old male admitted for midsternal chest pain radiating diffusely through upper chest into his head. Initial troponin: 0.02, second troponin: 0.57, third troponin: 0.83. EKG resulted Sinus @ 92bpm, w/ 3 PVC's, possible IMI, STTW c/w ischemia, prolonged QT. Cardiology was consulted and recommended starting patient on Heparin drop and cardiac cath. Cardiac cath resulted diffuse atherosclerosis throughout the coronary tree with patent stents in all three vessels; 60% stenosis in the diagonal vessel unchanged from prior; LV function is dilated but LV systolic ejection fraction is normal (50-55%). Cardiology recommend adding Imdur to patients medication regimen. In addition, patient had episode of hypoglycemia, which resolved after being given orange juice. His Levemir and Glipizide were held. During admission, pt was found to have hyperammonia. He was told to resume lactulose and f/u as scheduled at [facility]. Patient revealed noncompliance with medications at home. He was counseled on the importance of compliance with home medications. Discharge plan: Patient is stable for discharge to home as per Dr. Mckenna. He was counseled to return to the emergency department if symptoms return or worsen. Patient is to follow up with primary medical doctor, Dr. Romelia Santos, within 3-5 days of discharge. Patient is to follow up with cardiology, Dr. Russo as recommended. Recommended to follow up at [facility] for hyperammonia as scheduled. Patient should resume all medications as prescribed and instructed in discharge instructions. Patient is to begin Imdur 60 mg PO daily as prescribed and instructed. Patient understands and agrees with discharge plan. Disclaimer: Written above is a synopsis of patients current hospital admission. For full admission refer to EMR. Discharge Exam - Head Exam Head Exam: ATRAUMATIC, NORMAL INSPECTION, NORMOCEPHALIC - Eye Exam Eye Exam: EOMI, Normal appearance - Respiratory Exam Respiratory Exam: NORMAL BREATHING PATTERN. absent: Rales, Rhonchi, Wheezes, R espiratory Distress - Cardiovascular Exam Cardiovascular Exam: REGULAR RHYTHM, +S1, +S2 - GI/Abdominal Exam GI & Abdominal Exam: Normal Bowel Sounds, Soft. absent: Tenderness - Neurological Exam Neurological exam: Alert, Oriented x3 - Psychiatric Exam Psychiatric exam: Normal Affect, Normal Mood - Skin Skin Exam: Intact, Normal Color Discharge Plan - Discharge Medications Prescriptions: RX: Isosorbide Mononitrate [Imdur] 60 mg PO 0600 #14 tab - Follow Up Plan Condition: FAIR Disposition: HOME/ ROUTINE Instructions: Cardiac Catheterization, Heart Failure, Adult (DC), Chest Pain (DC), Hyperglycemia, Adult (DC), Coronary Heart Disease (DC) Additional Instructions: 1. Patient is stable for discharge to home as per Dr. Mckenna. 2. Patient is to followup with primary medical doctor, Dr. Santos, within 3-5 days of discharge from hospital. Patient should followup with inspector wreath, Dr. Russo, within 3-5 days of discharge from hospital. 3. Patient should resume all of his home medications as prescribed as no medication adjustments were made to home medications. Patient will continue taking Imdur 60mg by mouth. Patient should followup with Dr. Russo for routine followup due to new medication started. 4. Patient is educated to return to the hospital if symptoms worsen or recur. Nursing If you begin to experience chest pain, shortness of breath, your symptoms return, return to the nearest emergency room or call 911. Hold metformin for 48 hours, you can resume metformin on 12/25/17 Continue to monitor your blood sugar See care notes provided for further instructions. Referrals: Romelia Santos MD [Primary Care Provider] - <Mary Mckenna - Last Filed: 12/25/17 15:22> Provider - Provider Date of Admission: 12/20/17 13:37 Attending physician: Ryan Bro MD Primary care physician: Romelia Santos MD Hospital Course - Lab Results Lab Results: Most Recent Lab Values WBC 5.5 10^3/ul (4.5-11.0) 12/22/17 05:30 RBC 3.76 10^6/uL (3.5-6.1) 12/22/17 05:30 Hgb 11.5 g/dL (14.0-18.0) L 12/22/17 05:30 Hct 33.9 % (42.0-52.0) L 12/22/17 05:30 MCV 90.2 fl (80.0-105.0) 12/22/17 05:30 MCH 30.6 pg (25.0-35.0) 12/22/17 05:30 MCHC 33.9 g/dl (31.0-37.0) 12/22/17 05:30 RDW 14.5 % (11.5-14.5) 12/22/17 05:30 Plt Count 106 10^3/uL (120.0-450.0) L 12/22/17 05:30 MPV 11.3 fl (7.0-11.0) H 12/22/17 05:30 Gran % 47.1 % (50.0-68.0) L 12/21/17 07:00 Lymph % (Auto) 35.3 % (22.0-35.0) H 12/21/17 07:00 [place] % (Auto) 13.8 % (1.0-6.0) H 12/21/17 07:00 Eos % (Auto) 3.2 % (1.5-5.0) 12/21/17 07:00 Baso % (Auto) 0.6 % (0.0-3.0) 12/21/17 07:00 Gran # 2.53 (1.4-6.5) 12/21/17 07:00 Lymph # (Auto) 1.9 (1.2-3.4) 12/21/17 07:00 [place] # (Auto) 0.7 (0.1-0.6) H 12/21/17 07:00 Eos # (Auto) 0.2 (0.0-0.7) 12/21/17 07:00 Baso # (Auto) 0.03 K/mm3 (0.0-2.0) 12/21/17 07:00 PT 14.7 SECONDS (9.4-12.5) H 12/19/17 18:26 INR 1.28 12/19/17 18:26 APTT 82.7 Seconds (25.1-36.5) H 12/22/17 05:30 Sodium 136 mmol/L (132-148) 12/22/17 05:30 Potassium 3.8 mmol/L (3.6-5.0) 12/22/17 05:30 Chloride 107 mmol/L (98-107) 12/22/17 05:30 Carbon Dioxide 26 mmol/L (21-33) 12/22/17 05:30 Anion Gap 7 (10-20) L 12/22/17 05:30 BUN 7 mg/dL (7-21) 12/22/17 05:30 Creatinine 0.6 mg/dl (0.8-1.5) L 12/22/17 05:30 Est GFR ( Amer) > 60 12/22/17 05:30 Est GFR (Non-Af Amer) > 60 12/22/17 05:30 POC Glucose (mg/dL) 316 mg/dL (65-110) H 12/22/17 16:23 Random Glucose 293 mg/dL (70-110) H 12/22/17 05:30 Hemoglobin A1c 9.5 % (4.2-6.5) H 12/19/17 18:26 Calcium 8.2 mg/dL (8.4-10.5) L 12/22/17 05:30 Phosphorus 2.9 mg/dL (2.5-4.5) 12/22/17 05:30 Magnesium 1.8 mg/dL (1.7-2.2) 12/22/17 05:30 Total Bilirubin 0.9 mg/dL (0.2-1.3) 12/22/17 05:30 AST 59 U/L (17-59) 12/22/17 05:30 ALT 41 U/L (7-56) 12/22/17 05:30 Alkaline Phosphatase 133 U/L (38-126) H D 12/22/17 05:30 Ammonia 58 umol/L (9-33) H 12/20/17 06:30 Lactate Dehydrogenase 741 U/L (333-699) H 12/19/17 18:26 Total Creatine Kinase 102 U/L (35-230) 12/19/17 18:26 Troponin I 0.83 ng/mL H* D 12/20/17 06:30 NT-Pro-B Natriuret Pep 134 pg/mL (0-450) 12/19/17 18:26 Total Protein 6.8 g/dL (5.8-8.3) 12/22/17 05:30 Albumin 2.9 g/dL (3.0-4.8) L 12/22/17 05:30 Globulin 3.9 gm/dL 12/22/17 05:30 Albumin/Globulin Ratio 0.7 (1.1-1.8) L 12/22/17 05:30 Triglycerides 93 mg/dL (35-160) 12/20/17 17:06 Cholesterol 168 mg/dL (130-200) 12/20/17 17:06 LDL Cholesterol Direct 98 mg/dL (0-129) 12/20/17 17:06 HDL Cholesterol 38 mg/dL (29-60) 12/20/17 17:06 Attending/Attestation - Attestation I have personally seen and examined this patient.: Yes I have fully participated in the care of the patient.: Yes I have reviewed all pertinent clinical information, including history, physical exam and plan: Yes Notes (Text): 12/25/17 15:20 Medical record note made by the resident after discussion with my direction and input after the patient was personally seen and examined by me. I have reviewed the chart and agree that the record accurately reflects by personal performance of the history, physical exam, data review, and medical decision-making, in the course for the patient. I have also personally directed the plan of care. - 57 year old [place] male with past medical history of CAD s/p stents, diabetes, CHF, dyslipidemia, hypertension and hypothyroidism who presented with chest pain. Initial troponin was negative but repeat troponins increased; consider NSTEMI.Patient underwent cardiac catherization by that showed patent stents. He is pain free and remain stable after cardiac cath, Imdur 60 mg has been added in his regimen. He will bne discharged home and will follow up with PCP and Cardiology. Management plan was discussed in detail with patient and family. Education was provided.
[2017-12-22 18:40] VITALS: BP 104/50; PULSE 74; TEMP 98.1
== END 2017-12-22 21:40 | disposition home or self-care (01) | DRG 281 ==
LOC: ED 17:53 → ERH 19:15 → 2RNO 21:37 → OBSVTOIN 12-20 13:37 → 2RSO 12-22 11:42
PROVIDERS: ADMIT Internal Medicine; ATTEND Internal Medicine
PROC: 4A023N7 Measurement of Cardiac Sampling and Pressure, Left Heart, Percutaneous Approach (ICD-10-PCS; principal; 2017-12-22)
PROC: B2151ZZ Fluoroscopy of Left Heart using Low Osmolar Contrast (ICD-10-PCS; 2017-12-22)
PROC: B2111ZZ Fluoroscopy of Multiple Coronary Arteries using Low Osmolar Contrast (ICD-10-PCS; 2017-12-22)
DX: I21.4 Non-ST elevation (NSTEMI) myocardial infarction (principal); Z68.41 Body mass index [BMI] 40.0-44.9, adult; E66.01 Morbid (severe) obesity due to excess calories; I25.118 Atherosclerotic heart disease of native coronary artery with other forms of angina pectoris; E11.65 Type 2 diabetes mellitus with hyperglycemia; I11.0 Hypertensive heart disease with heart failure; I50.9 Heart failure, unspecified; K25.9 Gastric ulcer, unspecified as acute or chronic, without hemorrhage or perforation; J45.909 Unspecified asthma, uncomplicated; F03.90 Unspecified dementia, unspecified severity, without behavioral disturbance, psychotic disturbance, mood disturbance, and anxiety; K74.60 Unspecified cirrhosis of liver; E03.9 Hypothyroidism, unspecified; E87.6 Hypokalemia; E11.649 Type 2 diabetes mellitus with hypoglycemia without coma; D69.6 Thrombocytopenia, unspecified; E78.00 Pure hypercholesterolemia, unspecified; K44.9 Diaphragmatic hernia without obstruction or gangrene; K64.4 Residual hemorrhoidal skin tags; K64.8 Other hemorrhoids; Z79.82 Long term (current) use of aspirin; Z87.891 Personal history of nicotine dependence; Z95.5 Presence of coronary angioplasty implant and graft; Z91.14 Patient's other noncompliance with medication regimen; Z79.4 Long term (current) use of insulin; Z82.3 Family history of stroke; Z80.3 Family history of malignant neoplasm of breast